=== PATIENT | female | born 1985 | race American Indian/Alaskan Native ===

== ENCOUNTER 2017-01-17 11:42 | Emergency (ER) | payer OTHER ==
[2017-01-17] MEDS ORDERED: Ketorolac 30 MG/ML SDV IVPUSH ONE (11:56)
[2017-01-17] MEDS ORDERED: Sodium Chloride 0.9% 1,000 ML IV ONE (11:56)
[2017-01-17] MEDS ORDERED: Ondansetron 4 MG/2 ML SDV IVPUSH ONE (11:56)
--- NOTE | 2017-01-17 11:58 | EDM.PDOC ---
ED HPI GENERAL MEDICAL PROBLEM - General Chief Complaint: Abdominal Pain Stated Complaint: LOWER ABDOMINAL PAIN Time Seen by Provider: 01/17/17 11:57 Source of Information: Reports: Patient - History of Present Illness INITIAL COMMENTS - FREE TEXT/NARRATIVE: HISTORY AND PHYSICAL: History of present illness: []Patient presents with left lower quadrant pain since Saturday she rates 4 out of 10 nonradiating, she has been constipated since Saturday but having a hard stool just prior to arrival with bowel movement slight increase in pain. Patient does not elicit any pain behaviors now and is in no distress LMP December 31, 2016 Patient currently having some vaginal bleeding, on workup for hCG was positive quantization at 200 hence ultrasound performed No fever nausea vomiting diarrhea chest pain shortness breath headache dizziness or palpitation no urine symptoms Patient currently menstruating Review of systems: As per history of present illness and below otherwise all systems reviewed and negative. Past medical history: As per history of present illness and as reviewed below otherwise noncontributory. Surgical history: As per history of present illness and as reviewed below otherwise noncontributory. Social history: No reported history of drug or alcohol abuse. Family history: As per history of present illness and as reviewed below otherwise noncontributory. Physical exam: HEENT: Atraumatic, normocephalic, pupils reactive, negative for conjunctival pallor or scleral icterus, mucous membranes moist, throat clear, neck supple, nontender, trachea midline. Lungs: Clear to auscultation, breath sounds equal bilaterally, chest nontender. Heart: S1S2, regular, negative for clicks, rubs, or JVD. Abdomen: Soft, nondistended, nontender on right upper and lower quadrant she is tender with deep palpation left lower quadrant no guarding or rebound. Negative for masses or hepatosplenomegaly. Negative for costovertebral tenderness. Pelvis: Stable nontender. Genitourinary: Deferred. Rectal: Deferred. Extremities: Atraumatic, negative for cords or calf pain. Neurovascular unremarkable. Neuro: Awake, alert, oriented. Cranial nerves II through XII unremarkable. Cerebellum unremarkable. Motor and sensory unremarkable throughout. Exam nonfocal. Diagnostics: []CBC, CMP, UA, amylase lipase Therapeutics: []1 L normal saline bolus Zofran 8 mg IV Toradol 30 mg IV Impression: Left adnexal pain Early intrauterine versus ectopic Threatened ABO type O positive I have discussed case with Dr. Cat and he will follow the patient on Saturday in his clinic he is requesting an hCG level the performed on Saturday I will give the patient a lab order and order to page me with results are forward results to me by Dr. Cat will be following the patient on Saturday further evaluation and treatment pending the visit to his clinic. Definitive disposition and diagnosis as appropriate pending reevaluation and review of above. left lower abdomen Pain Score (Numeric/FACES): 8 - Related Data Allergies Allergy/AdvReac Type Severity Reaction Status Date / Time Penicillins Allergy Hives Verified 01/17/17 11:49 Clear medical tape Allergy Other Uncoded 01/17/17 11:49 Green grapes Allergy Hives Uncoded 01/17/17 11:49 green grapes Allergy Hives Uncoded 01/17/17 11:49 Home Meds: Home Meds . 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 Other OB/BYN History: LMP 02/23/15 Other Musculoskeletal History: Some back pain low and upper, Hx; fractured Left Eye socket with CT scan review about 3-4 months ago - Infectious Disease History Infectious Disease History: Reports: Chicken Pox - Past Surgical History Other GI Surgeries/Procedures: Diagnostic Laparoscopy Other Female Surgeries/Procedures: ovarian cyct, 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 ED EXAM, GENERAL - Physical Exam Exam: See Below Course - Vital Signs Last Recorded V/S: Last Vital Signs Temp 36.7 C 01/17/17 11:48 Pulse 84 01/17/17 11:48 Resp 18 01/17/17 11:48 BP 157/92 H 01/17/17 11:48 Pulse Ox 98 01/17/17 11:48 - Orders/Labs/Meds Labs: Laboratory Tests 01/17/17 01/17/17 01/17/17 Range/Units 12:12 12:12 12:12 WBC 9.02 (4.0-11.0) K/uL RBC 4.78 (4.30-5.90) M/uL Hgb 12.1 (12.0-16.0) g/dL Hct 38.2 (36.0-46.0) % MCV 79.9 L (80.0-98.0) fL MCH 25.3 L (27.0-32.0) pg MCHC 31.7 (31.0-37.0) g/dL RDW Std Deviation 49.8 (28.0-62.0) fl RDW Coeff of Teresa 17 H (11.0-15.0) % Plt Count 311 (150-400) K/uL MPV 10.30 (7.40-12.00) fL Neut % (Auto) 63.8 (48.0-80.0) % Lymph % (Auto) 27.9 (16.0-40.0) % [place] % (Auto) 6.8 (0.0-15.0) % Eos % (Auto) 1.3 (0.0-7.0) % Baso % (Auto) 0.2 (0.0-1.5) % Neut # (Auto) 5.8 H (1.4-5.7) K/uL Lymph # (Auto) 2.5 H (0.6-2.4) K/uL [place] # (Auto) 0.6 (0.0-0.8) K/uL Eos # (Auto) 0.1 (0.0-0.7) K/uL Baso # (Auto) 0.0 (0.0-0.1) K/uL Nucleated RBC % 0.0 /100WBC Nucleated RBCs # 0 K/uL Sodium 138 (136-146) mmol/L Potassium 3.6 (3.5-5.1) mmol/L Chloride 106 (98-110) mmol/L Carbon Dioxide 23 (21-31) mmol/L BUN 6 (6.0-23.0) mg/dL Creatinine 0.7 (0.6-1.5) mg/dL Est Cr Clr Drug Dosing 112.20 mL/min Estimated GFR (MDRD) > 60.0 ml/min Glucose 116 H (60-110) mg/dL Calcium 9.3 (8.8-10.8) mg/dL Total Bilirubin 0.5 (0.1-1.5) mg/dL AST 16 (5-40) IU/L ALT 17 (8-54) IU/L Alkaline Phosphatase 92 (40-150) C-Reactive Protein 1.57 H (0.0-0.5) mg/dL Total Protein 7.5 (6.0-8.0) g/dL Albumin 4.0 (3.5-5.0) g/dL Globulin 3.5 (2.0-3.5) g/dL Albumin/Globulin Ratio 1.1 L (1.3-2.8) Amylase 44 (10-90) U/L Lipase 11 (7-80) U/L HCG, Quant mIU/mL Urine Color Urine Appearance Urine pH (5.0-8.0) Ur Specific [place] (1.001-1.035) Urine Protein (NEGATIVE) mg/dL Urine Glucose (UA) (NEGATIVE) mg/dL Urine Ketones (NEGATIVE) mg/dL Urine Occult Blood (NEGATIVE) Urine Nitrite (NEGATIVE) Urine Bilirubin (NEGATIVE) Urine Urobilinogen (<2.0) EU/dL Ur Leukocyte Esterase (NEGATIVE) Urine RBC (0-2/HPF) Urine WBC (0-5/HPF) Ur Epithelial Cells (NONE-FEW) Urine Bacteria (NEGATIVE) Urine HCG, Qual (NEGATIVE) Blood Type 01/17/17 01/17/17 01/17/17 Range/Units 12:12 12:12 12:49 WBC (4.0-11.0) K/uL RBC (4.30-5.90) M/uL Hgb (12.0-16.0) g/dL Hct (36.0-46.0) % MCV (80.0-98.0) fL MCH (27.0-32.0) pg MCHC (31.0-37.0) g/dL RDW Std Deviation (28.0-62.0) fl RDW Coeff of Teresa (11.0-15.0) % Plt Count (150-400) K/uL MPV (7.40-12.00) fL Neut % (Auto) (48.0-80.0) % Lymph % (Auto) (16.0-40.0) % [place] % (Auto) (0.0-15.0) % Eos % (Auto) (0.0-7.0) % Baso % (Auto) (0.0-1.5) % Neut # (Auto) (1.4-5.7) K/uL Lymph # (Auto) (0.6-2.4) K/uL [place] # (Auto) (0.0-0.8) K/uL Eos # (Auto) (0.0-0.7) K/uL Baso # (Auto) (0.0-0.1) K/uL Nucleated RBC % /100WBC Nucleated RBCs # K/uL Sodium (136-146) mmol/L Potassium (3.5-5.1) mmol/L Chloride (98-110) mmol/L Carbon Dioxide (21-31) mmol/L BUN (6.0-23.0) mg/dL Creatinine (0.6-1.5) mg/dL Est Cr Clr Drug Dosing mL/min Estimated GFR (MDRD) ml/min Glucose (60-110) mg/dL Calcium (8.8-10.8) mg/dL Total Bilirubin (0.1-1.5) mg/dL AST (5-40) IU/L ALT (8-54) IU/L Alkaline Phosphatase (40-150) C-Reactive Protein (0.0-0.5) mg/dL Total Protein (6.0-8.0) g/dL Albumin (3.5-5.0) g/dL Globulin (2.0-3.5) g/dL Albumin/Globulin Ratio (1.3-2.8) Amylase (10-90) U/L Lipase (7-80) U/L HCG, Quant 256.2 mIU/mL Urine Color Urine Appearance Urine pH (5.0-8.0) Ur Specific [place] (1.001-1.035) Urine Protein (NEGATIVE) mg/dL Urine Glucose (UA) (NEGATIVE) mg/dL Urine Ketones (NEGATIVE) mg/dL Urine Occult Blood (NEGATIVE) Urine Nitrite (NEGATIVE) Urine Bilirubin (NEGATIVE) Urine Urobilinogen (<2.0) EU/dL Ur Leukocyte Esterase (NEGATIVE) Urine RBC (0-2/HPF) Urine WBC (0-5/HPF) Ur Epithelial Cells (NONE-FEW) Urine Bacteria (NEGATIVE) Urine HCG, Qual POSITIVE (NEGATIVE) Blood Type O POSITIVE 01/17/17 Range/Units 12:49 WBC (4.0-11.0) K/uL RBC (4.30-5.90) M/uL Hgb (12.0-16.0) g/dL Hct (36.0-46.0) % MCV (80.0-98.0) fL MCH (27.0-32.0) pg MCHC (31.0-37.0) g/dL RDW Std Deviation (28.0-62.0) fl RDW Coeff of Teresa (11.0-15.0) % Plt Count (150-400) K/uL MPV (7.40-12.00) fL Neut % (Auto) (48.0-80.0) % Lymph % (Auto) (16.0-40.0) % [place] % (Auto) (0.0-15.0) % Eos % (Auto) (0.0-7.0) % Baso % (Auto) (0.0-1.5) % Neut # (Auto) (1.4-5.7) K/uL Lymph # (Auto) (0.6-2.4) K/uL [place] # (Auto) (0.0-0.8) K/uL Eos # (Auto) (0.0-0.7) K/uL Baso # (Auto) (0.0-0.1) K/uL Nucleated RBC % /100WBC Nucleated RBCs # K/uL Sodium (136-146) mmol/L Potassium (3.5-5.1) mmol/L Chloride (98-110) mmol/L Carbon Dioxide (21-31) mmol/L BUN (6.0-23.0) mg/dL Creatinine (0.6-1.5) mg/dL Est Cr Clr Drug Dosing mL/min Estimated GFR (MDRD) ml/min Glucose (60-110) mg/dL Calcium (8.8-10.8) mg/dL Total Bilirubin (0.1-1.5) mg/dL AST (5-40) IU/L ALT (8-54) IU/L Alkaline Phosphatase (40-150) C-Reactive Protein (0.0-0.5) mg/dL Total Protein (6.0-8.0) g/dL Albumin (3.5-5.0) g/dL Globulin (2.0-3.5) g/dL Albumin/Globulin Ratio (1.3-2.8) Amylase (10-90) U/L Lipase (7-80) U/L HCG, Quant mIU/mL Urine Color YELLOW Urine Appearance CLEAR Urine pH 6.0 (5.0-8.0) Ur Specific [place] <= 1.005 (1.001-1.035) Urine Protein NEGATIVE (NEGATIVE) mg/dL Urine Glucose (UA) NEGATIVE (NEGATIVE) mg/dL Urine Ketones NEGATIVE (NEGATIVE) mg/dL Urine Occult Blood LARGE H (NEGATIVE) Urine Nitrite NEGATIVE (NEGATIVE) Urine Bilirubin NEGATIVE (NEGATIVE) Urine Urobilinogen 0.2 (<2.0) EU/dL Ur Leukocyte Esterase NEGATIVE (NEGATIVE) Urine RBC 8-10 (0-2/HPF) Urine WBC 0-2 (0-5/HPF) Ur Epithelial Cells MODERATE (NONE-FEW) Urine Bacteria FEW (NEGATIVE) Urine HCG, Qual (NEGATIVE) Blood Type Meds: Medications Discontinued Medications Generic Name Dose Route Start Last Admin Trade Name Freq PRN Reason Stop Dose Admin Sodium Chloride 1,000 mls @ 999 mls/hr 01/17/17 11:56 01/17/17 12:15 Normal Saline IV 01/17/17 12:56 999 mls/hr STAT ONE Administration Ketorolac Tromethamine 30 mg 01/17/17 11:56 01/17/17 12:16 Toradol IVPUSH 01/17/17 11:57 30 mg ONETIME ONE Administration Ondansetron HCl 8 mg 01/17/17 11:56 01/17/17 12:15 Zofran IVPUSH 01/17/17 11:57 8 mg ONETIME ONE Administration Departure - Departure Time of Disposition: 15:15 Disposition: Home, Self-Care 01 Condition: Good Clinical Impression: Threatened - Discharge Information Forms: ED Department Discharge Additional Instructions: Return Saturday for lab testing, in order will be provided to have hCG quantitative lab drawn, he did not need to be seen in the emergency room at that time unless you are having increased pain or increased bleeding or any other symptoms of concern such as fever nausea vomiting chills sweats. Dr. Cat will be seeing you in his clinic on Saturday, he will need to contact his clinic and schedule the exact time of appointment for Saturday at the [facility] number for the clinic is provided below [facility] [address] [place] [id number] If you have any trouble in getting your appointment scheduled is imperative that she be seen on Saturday and with any difficulty contact me through the emergency room and I will assist with appointment arrangement further. A lab order will be placed for Saturday, as well as emergency room referral to Dr. Leyva' clinic will be provided and I do not anticipate any difficulty in scheduling the appointment. The following information is given to patients seen in the emergency department who are being discharged to home. This information is to outline your options for follow-up care. We provide all patients seen in our emergency department with a follow-up referral. The need for follow-up, as well as the timing and circumstances, are variable depending upon the specifics of your emergency department visit. If you don't have a primary care physician on staff, we will provide you with a referral. We always advise you to contact your personal physician following an emergency department visit to inform them of the circumstance of the visit and for follow-up with them and/or the need for any referrals to a consulting specialist. The emergency department will also refer you to a specialist when appropriate. This referral assures that you have the opportunity for follow-up care with a specialist. All of these measure are taken in an effort to provide you with optimal care, which includes your follow-up. Under all circumstances we always encourage you to contact your private physician who remains a resource for coordinating your care. When calling for follow-up care, please make the office aware that this follow-up is from your recent emergency room visit. If for any reason you are refused follow-up, please contact the [facility] emergency department at and asked to speak to the emergency department charge nurse. .
[2017-01-17 12:44] LABS: CHLORIDE,CL 106 mmol/L (98-110); SODIUM,NA 138 mmol/L (136-146)
--- NOTE | 2017-01-17 14:48 | US ---
Pelvic transvaginal sonogram Multiple longitudinal and transverse sections obtained with real-time ultrasound demonstrate that th e endometrium of the uterus is thickened measuring 0.96 cm without evidence of an intrauterine gesta tional sac at this time. Right ovary is normal. Left ovary is contiguous with a septated cystic mass medial to and contiguous with the ovary measuring 3.3 x 2.9 cm. There is a tiny amount of pelvic pe ritoneal fluid behind the uterus. Impression: Early intrauterine gestation versus ectopic gestation not excluded. The cystic mass coul d represent a corpus luteum cyst which has bled slightly. Serum hCG determinations to document appro priate doubling time is recommended along with follow-up ultrasonography in an appropriate clinical interval.
[2017-01-17 15:35] VITALS: BP 132/76
== END 2017-01-17 15:35 | disposition home or self-care (01) ==
LOC: MW.ED 11:42
DX: O20.0 Threatened abortion (principal); F17.210 Nicotine dependence, cigarettes, uncomplicated; Z88.0 Allergy status to penicillin; Z91.048 Other nonmedicinal substance allergy status
CPT/HCPCS: 36415; 76815; 80053; 81001; 81025; 82150; 83690; 84702; 85025; 86140; 86900; 86901; 96361; 96374; 96375; 99284; J1885; J2405; J7040; 99283

== ENCOUNTER 2017-06-19 08:24 | Emergency (ER) | payer OTHER ==
--- NOTE | 2017-06-19 08:52 | EDM.PDOC ---
ED HPI GENERAL MEDICAL PROBLEM - General Chief Complaint: Respiratory Problem Stated Complaint: FLU-LIKE SYMPTOMS Time Seen by Provider: 06/19/17 08:36 Source of Information: Reports: Patient History Limitations: Reports: No Limitations - History of Present Illness INITIAL COMMENTS - FREE TEXT/NARRATIVE: History of present illness: []Patient's had cold symptoms for 4 days with sinus congestion cough, 2 episodes of vomiting and 2 episodes of diarrhea since yesterday. She feels that her fever just broke as she now has sweats. Review of systems: As per history of present illness and below otherwise all systems reviewed and negative. Past medical history: As per history of present illness and as reviewed below otherwise noncontributory. Surgical history: As per history of present illness and as reviewed below otherwise noncontributory. Social history: No reported history of drug or alcohol abuse. Family history: As per history of present illness and as reviewed below otherwise noncontributory. Physical exam: General: Well developed, well nourished in NAD HEENT: Atraumatic, normocephalic, pupils reactive, negative for conjunctival pallor or scleral icterus, mucous membranes moist, throat clear, neck supple, nontender, trachea midline. TMs clear adenopathy Lungs: Clear to auscultation, breath sounds equal bilaterally, chest nontender. Mild expiratory wheezing on the left lower accessory muscle use or rhonchi noted. Heart: S1S2, regular, negative for clicks, rubs, or JVD. Abdomen: Soft, nondistended, nontender. Negative for masses or hepatosplenomegaly. Negative for costovertebral tenderness. Pelvis: Stable nontender. Genitourinary: Deferred. Rectal: Deferred. Extremities: Atraumatic, negative for cords or calf pain. Neurovascular unremarkable. Neuro: Awake, alert, oriented. Cranial nerves II through XII unremarkable. Cerebellum unremarkable. Motor and sensory unremarkable throughout. Exam nonfocal. Diagnostics: [] Therapeutics: [] Impression: []Viral syndrome Plan: []Albuterol, Zofran for nausea increase fluids follow-up with PMD as needed increase fluids as tolerated. Definitive disposition and diagnosis as appropriate pending reevaluation and review of above. Bodyaches Pain Score (Numeric/FACES): 5 - Related Data Allergies Allergy/AdvReac Type Severity Reaction Status Date / Time Penicillins Allergy Hives Verified 01/17/17 11:49 Clear medical tape Allergy Other Uncoded 01/17/17 11:49 Green grapes Allergy Hives Uncoded 06/19/17 08:40 Home Meds: Home Meds Albuterol Sulfate [Ventolin Hfa] 8 gm IH Q4HR PRN #1 [email or web address] 06/19/17 [Rx] Ondansetron HCl [Zofran] 4 mg PO Q6HR PRN #16 tablet 06/19/17 [Rx] Past Medical History - Past Health History Medical/Surgical History: Denies Medical/Surgical History Other Respiratory History: Reports > 10 yr history of smoking, current use 1 pack/day Gastrointestinal History: Reports: Other (See Below) Other Gastrointestinal History: Indigestion, Right Upper Quadrant Pain, gallbladder problems 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 Other OB/BYN History: LMP 02/23/15 Other Musculoskeletal History: Some back pain low and upper, Hx; fractured Left Eye socket with CT scan review about 3-4 months ago - Infectious Disease History Infectious Disease History: Reports: Chicken Pox - Past Surgical History Other GI Surgeries/Procedures: Diagnostic Laparoscopy Other Female Surgeries/Procedures: ovarian cyct, 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 Social & Family History - Family History Family Medical History: Noncontributory - Tobacco Use Smoking Status *Q: Current Every Day Smoker Years of Tobacco use: 12 Packs/Tins Daily: 1 - Caffeine Use Caffeine Use: Reports: None - Alcohol Use Days Per Week of Alcohol Use: 0 - Recreational Drug Use Recreational Drug Use: No Drug Use in Last 12 Months: No ED ROS GENERAL - Review of Systems Review Of Systems: See Below (See history of present illness) ED EXAM, GENERAL - Physical Exam Exam: See Below (See history of present illness) Course - Vital Signs Last Recorded V/S: Last Vital Signs Temp 98.6 F 06/19/17 08:43 Pulse 103 H 06/19/17 08:43 Resp 18 06/19/17 08:43 BP 143/89 H 06/19/17 08:43 Pulse Ox 97 06/19/17 08:43 - Orders/Labs/Meds Orders: Active Orders 24 hr Category Date Time Status INFLUENZA A+B AG SCREEN [RM] Stat Lab 06/19/17 08:40 Ordered Departure - Departure Time of Disposition: 08:49 Disposition: Home, Self-Care 01 Condition: Good Clinical Impression: Viral syndrome - Discharge Information Prescriptions: Albuterol Sulfate [Ventolin Hfa] 8 gm IH Q4HR PRN #1 [email or web address] PRN Reason: Shortness Of Breath Ondansetron HCl [Zofran] 4 mg PO Q6HR PRN #16 tablet PRN Reason: Nausea Referrals: Shiva Tse MD [Resident] - (Follow-up as needed) Additional Instructions: The following information is given to patients seen in the emergency department who are being discharged to home. This information is to outline your options for follow-up care. We provide all patients seen in our emergency department with a follow-up referral. The need for follow-up, as well as the timing and circumstances, are variable depending upon the specifics of your emergency department visit. If you don't have a primary care physician on staff, we will provide you with a referral. We always advise you to contact your personal physician following an emergency department visit to inform them of the circumstance of the visit and for follow-up with them and/or the need for any referrals to a consulting specialist. The emergency department will also refer you to a specialist when appropriate. This referral assures that you have the opportunity for follow-up care with a specialist. All of these measure are taken in an effort to provide you with optimal care, which includes your follow-up. Under all circumstances we always encourage you to contact your private physician who remains a resource for coordinating your care. When calling for follow-up care, please make the office aware that this follow-up is from your recent emergency room visit. If for any reason you are refused follow-up, please contact the [facility] Emergency Department at and asked to speak to the emergency department charge nurse. Zofran and albuterol as directed, Tylenol, Motrin [id number] meds for symptomatic relief. Increase fluids as tolerated follow-up [facility] as needed [facility] [address] [place] [id number] - My Orders Last 24 Hours: My Active Orders 06/19/17 08:40 INFLUENZA A+B AG SCREEN [RM] Stat - Assessment/Plan Last 24 Hours: My Active Orders 06/19/17 08:40 INFLUENZA A+B AG SCREEN [RM] Stat
[2017-06-19 09:08] VITALS: BP 136/78
== END 2017-06-19 09:09 | disposition home or self-care (01) ==
LOC: MW.ED 08:24
DX: B34.9 Viral infection, unspecified (principal); F17.210 Nicotine dependence, cigarettes, uncomplicated; Z88.0 Allergy status to penicillin
CPT/HCPCS: 99282; 99283

== ENCOUNTER 2017-09-27 00:34 | Emergency (ER) | payer OTHER ==
--- NOTE | 2017-09-27 00:44 | EDM.PDOC ---
ED HPI GENERAL MEDICAL PROBLEM - General Stated Complaint: BACK PAIN Time Seen by Provider: 09/27/17 00:39 - History of Present Illness INITIAL COMMENTS - FREE TEXT/NARRATIVE: HISTORY AND PHYSICAL: History of present illness: Patient 31-year-old female with history sciatica presents with concern of right lower back pain. She denies numbness weakness incontinence or retention of bowel or bladder denies trauma or other concern Review of systems: As per history of present illness and below otherwise all systems reviewed and negative. Past medical history: As per history of present illness and as reviewed below otherwise noncontributory. Surgical history: As per history of present illness and as reviewed below otherwise noncontributory. Social history: No reported history of drug or alcohol abuse. Family history: As per history of present illness and as reviewed below otherwise noncontributory. Physical exam: HEENT: Atraumatic, normocephalic, pupils reactive, negative for conjunctival pallor or scleral icterus, mucous membranes moist, throat clear, neck supple, nontender, trachea midline. Lungs: Clear to auscultation, breath sounds equal bilaterally, chest nontender. Heart: S1S2, regular, negative for clicks, rubs, or JVD. Abdomen: Soft, nondistended, nontender. Negative for masses or hepatosplenomegaly. Negative for costovertebral tenderness. Pelvis: Stable nontender. Genitourinary: Deferred. Rectal: Deferred. Extremities: Atraumatic, negative for cords or calf pain. Neurovascular unremarkable. Neuro: Awake, alert, oriented. Cranial nerves II through XII unremarkable. Cerebellum unremarkable. Motor and sensory unremarkable throughout. Exam nonfocal. Back: Patient is some tenderness over right sciatic notch is no vertebral body or point tenderness she is able stand on her toes back on her heels motor and sensory are normal Diagnostics: None Therapeutics: Toradol 60 mg IM Impression: #1 right-sided back pain history of sciatica Definitive disposition and diagnosis as appropriate pending reevaluation and review of above. - Related Data Allergies Allergy/AdvReac Type Severity Reaction Status Date / Time Penicillins Allergy Hives Verified 01/17/17 11:49 Clear medical tape Allergy Other Uncoded 01/17/17 11:49 Green grapes Allergy Hives Uncoded 06/19/17 08:40 Home Meds: Home Meds Albuterol Sulfate [Ventolin Hfa] 8 gm IH Q4HR PRN #1 [email or web address] 06/19/17 [Rx] Ondansetron HCl [Zofran] 4 mg PO Q6HR PRN #16 tablet 06/19/17 [Rx] Past Medical History - Past Health History Medical/Surgical History: Denies Medical/Surgical History Other Respiratory History: Reports > 10 yr history of smoking, current use 1 pack/day Gastrointestinal History: Reports: Other (See Below) Other Gastrointestinal History: Indigestion, Right Upper Quadrant Pain, gallbladder problems 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: Reports: 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 Other OB/BYN History: LMP 02/23/15 Other Musculoskeletal History: Some back pain low and upper, Hx; fractured Left Eye socket with CT scan review about 3-4 months ago - Infectious Disease History Infectious Disease History: Reports: Chicken Pox - Past Surgical History Other GI Surgeries/Procedures: Diagnostic Laparoscopy Other Female Surgeries/Procedures: ovarian cyct, 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 ED EXAM, GENERAL - Physical Exam Exam: See Below Departure - Departure Time of Disposition: 00:42 Disposition: Home, Self-Care 01 Condition: Good Clinical Impression: Low back pain, Sciatica - Discharge Information Additional Instructions: The following information is given to patients seen in the emergency department who are being discharged to home. This information is to outline your options for follow-up care. We provide all patients seen in our emergency department with a follow-up referral. The need for follow-up, as well as the timing and circumstances, are variable depending upon the specifics of your emergency department visit. If you don't have a primary care physician on staff, we will provide you with a referral. We always advise you to contact your personal physician following an emergency department visit to inform them of the circumstance of the visit and for follow-up with them and/or the need for any referrals to a consulting specialist. The emergency department will also refer you to a specialist when appropriate. This referral assures that you have the opportunity for followup care with a specialist. All of these measure are taken in an effort to provide you with optimal care, which includes your followup. Under all circumstances we always encourage you to contact your private physician who remains a resource for coordinating your care. When calling for followup care, please make the office aware that this follow-up is from your recent emergency room visit. If for any reason you are refused follow-up, please contact the [facility] emergency department at and asked to speak to the emergency department charge nurse. Ultram/Medrol as prescribed follow-up private medical doctor call to schedule appointment return as needed as discussed
[2017-09-27] MEDS ORDERED: Ketorolac 60 MG/2 ML SDV IM ONE (00:45)
[2017-09-27 01:19] VITALS: BP 147/75
== END 2017-09-27 01:10 | disposition home or self-care (01) ==
LOC: MW.ED 00:34
DX: M54.41 Lumbago with sciatica, right side (principal); F17.210 Nicotine dependence, cigarettes, uncomplicated; Z88.0 Allergy status to penicillin; Z91.018 Allergy to other foods
CPT/HCPCS: 96372; 99283; J1885

== ENCOUNTER 2018-01-26 19:40 | Emergency (ER) | payer OTHER ==
[2018-01-26] MEDS ORDERED: Ketorolac 60 MG/2 ML SDV IM ONE (20:08)
--- NOTE | 2018-01-26 20:15 | EDM.PDOC ---
ED HPI GENERAL MEDICAL PROBLEM - General Chief Complaint: Back Pain or Injury Stated Complaint: LOWER BACK IS HURTING Time Seen by Provider: 01/26/18 20:05 - History of Present Illness INITIAL COMMENTS - FREE TEXT/NARRATIVE: HISTORY AND PHYSICAL: History of present illness: Patient's a 32-year-old white female history chronic back pain presents a concern of low back pain there's been no numbness weakness incontinence or retention bowel or bladder and no other complaints she has received Toradol in the past with good improvement. Patient took muscle relaxants and narcotic analgesic from prior prescription prior to arrival Review of systems: As per history of present illness and below otherwise all systems reviewed and negative. Past medical history: As per history of present illness and as reviewed below otherwise noncontributory. Surgical history: As per history of present illness and as reviewed below otherwise noncontributory. Social history: No reported history of drug or alcohol abuse. Family history: As per history of present illness and as reviewed below otherwise noncontributory. Physical exam: HEENT: Atraumatic, normocephalic, pupils reactive, negative for conjunctival pallor or scleral icterus, mucous membranes moist, throat clear, neck supple, nontender, trachea midline. Lungs: Clear to auscultation, breath sounds equal bilaterally, chest nontender. Heart: S1S2, regular, negative for clicks, rubs, or JVD. Abdomen: Soft, nondistended, nontender. Negative for masses or hepatosplenomegaly. Negative for costovertebral tenderness. Pelvis: Stable nontender. Genitourinary: Deferred. Rectal: Deferred. Extremities: Atraumatic, negative for cords or calf pain. Neurovascular unremarkable. Neuro: Awake, alert, oriented. Cranial nerves II through XII unremarkable. Cerebellum unremarkable. Motor and sensory unremarkable throughout. Exam nonfocal. Back: Patient is some mild paravertebral tenderness at the level lumbar spinal vertebral body or point tenderness patient is able CNR toes back on her heels motor and sensory are normal Diagnostics: Deferred Therapeutics: Toradol 60 mg IM Impression: #1 chronic back pain Definitive disposition and diagnosis as appropriate pending reevaluation and review of above. low back Pain Score (Numeric/FACES): 10 - Related Data Allergies Allergy/AdvReac Type Severity Reaction Status Date / Time Penicillins Allergy Hives Verified 01/26/18 19:54 Clear medical tape Allergy Other Uncoded 01/26/18 19:54 Green grapes Allergy Hives Uncoded 01/26/18 19:54 Home Meds: Home Meds Cyclobenzaprine [Flexeril] 10 mg PO DAILY PRN 01/26/18 [History] Hydrocodone/Acetaminophen [Hydrocodon-Acetaminoph 7.5-325] 1 each PO ASDIRECTED PRN 01/26/18 [History] Past Medical History - Past Health History Medical/Surgical History: Denies Medical/Surgical History HEENT History: Reports: None Cardiovascular History: Reports: None Other Respiratory History: Reports > 10 yr history of smoking, current use 1 pack/day Gastrointestinal History: Reports: Other (See Below) Other Gastrointestinal History: Indigestion, Right Upper Quadrant Pain, gallbladder problems Genitourinary History: Reports: None 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 CONTRACTOR 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 History: LMP 02/23/15 Musculoskeletal History: Reports: Back Pain, Chronic Other Musculoskeletal History: Some back pain low and upper, Hx; fractured Left Eye socket with CT scan review about 3-4 months ago Neurological History: Reports: None Psychiatric History: Reports: None Endocrine/Metabolic History: Reports: None Hematologic History: Reports: None Immunologic History: Reports: None Oncologic (Cancer) History: Reports: None Dermatologic History: Reports: None - Infectious Disease History Infectious Disease History: Reports: Chicken Pox - Past Surgical History Head Surgeries/Procedures: Reports: None Other GI Surgeries/Procedures: Diagnostic Laparoscopy Other Female Surgeries/Procedures: ovarian cyct, 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 ED EXAM, GENERAL - Physical Exam Exam: See Below (See dictation) Course - Vital Signs Last Recorded V/S: Last Vital Signs Temp 36.0 C 01/26/18 19:52 Pulse 90 01/26/18 19:52 Resp 16 01/26/18 19:52 BP 126/82 01/26/18 19:52 Pulse Ox 97 01/26/18 19:52 - Orders/Labs/Meds Meds: Medications Discontinued Medications Generic Name Dose Route Start Last Admin Trade Name Yaneth PRN Reason Stop Dose Admin Ketorolac Tromethamine 60 mg 01/26/18 20:08 Toradol IM 01/26/18 20:09 ONETIME ONE Departure - Departure Time of Disposition: 20:14 Disposition: Home, Self-Care 01 Condition: Good Clinical Impression: Chronic back pain - Discharge Information *PRESCRIPTION DRUG MONITORING PROGRAM REVIEWED*: Not Applicable *COPY OF PRESCRIPTION DRUG MONITORING REPORT IN PATIENT DREA: Not Applicable Referrals: PCP,None [Primary Care Provider] - Additional Instructions: The following information is given to patients seen in the emergency department who are being discharged to home. This information is to outline your options for follow-up care. We provide all patients seen in our emergency department with a follow-up referral. The need for follow-up, as well as the timing and circumstances, are variable depending upon the specifics of your emergency department visit. If you don't have a primary care physician on staff, we will provide you with a referral. We always advise you to contact your personal physician following an emergency department visit to inform them of the circumstance of the visit and for follow-up with them and/or the need for any referrals to a consulting specialist. The emergency department will also refer you to a specialist when appropriate. This referral assures that you have the opportunity for followup care with a specialist. All of these measure are taken in an effort to provide you with optimal care, which includes your followup. Under all circumstances we always encourage you to contact your private physician who remains a resource for coordinating your care. When calling for followup care, please make the office aware that this follow-up is from your recent emergency room visit. If for any reason you are refused follow-up, please contact the [facility] emergency department at and asked to speak to the emergency department charge nurse. Continue current medications Medrol as prescribed follow-up private medical doctor as discussed reevaluation and further diagnostic and therapy as indicated
[2018-01-26 20:34] VITALS: BP 113/88
== END 2018-01-26 20:39 | disposition home or self-care (01) ==
LOC: MW.ED 19:40
DX: G89.29 Other chronic pain (principal); M54.5 Low back pain; F17.210 Nicotine dependence, cigarettes, uncomplicated; Z88.0 Allergy status to penicillin; Z88.8 Allergy status to other drugs, medicaments and biological substances; Z79.899 Other long term (current) drug therapy
CPT/HCPCS: 96372; 99283; J1885

== ENCOUNTER 2018-11-28 19:30 | Emergency (ER) | payer OTHER ==
--- NOTE | 2018-11-28 19:39 | EDM.PDOC ---
ED HPI GENERAL MEDICAL PROBLEM - General Stated Complaint: SWOLLEN FACE AND HEADACHE Time Seen by Provider: 11/28/18 19:36 - History of Present Illness INITIAL COMMENTS - FREE TEXT/NARRATIVE: HISTORY AND PHYSICAL: History of present illness: Patient's a 32-year-old white female history of chronic intermittent headache present concern of headache 2 days has been no trauma no nausea no vomiting patient reports of nursing that she feels like she had left-sided numbness and weakness this morning. This is vaguely described in is not illustrated by a associated behavior or limitation that qualifies is better. Review of systems: As per history of present illness and below otherwise all systems reviewed and negative. Past medical history: As per history of present illness and as reviewed below otherwise noncontributory. Surgical history: As per history of present illness and as reviewed below otherwise noncontributory. Social history: No reported history of drug or alcohol abuse. Family history: As per history of present illness and as reviewed below otherwise noncontributory. Physical exam: HEENT: Atraumatic, normocephalic, pupils reactive, negative for conjunctival pallor or scleral icterus, mucous membranes moist, throat clear, neck supple, nontender, trachea midline. Lungs: Clear to auscultation, breath sounds equal bilaterally, chest nontender. Heart: S1S2, regular, negative for clicks, rubs, or JVD. Abdomen: Soft, nondistended, nontender. Negative for masses or hepatosplenomegaly. Negative for costovertebral tenderness. Pelvis: Stable nontender. Genitourinary: Deferred. Rectal: Deferred. Extremities: Atraumatic, negative for cords or calf pain. Neurovascular unremarkable. Neuro: Awake, alert, oriented. Cranial nerves II through XII unremarkable. Cerebellum unremarkable. Motor and sensory unremarkable throughout. Exam nonfocal. Diagnostics: CBC CMP troponin PT/INR chest x-ray EKG CT brain Therapeutics: Saline lock Impression: #1 cephalgia disposition and diagnosis as appropriate pending reevaluation and review of above. - Related Data Allergies Allergy/AdvReac Type Severity Reaction Status Date / Time Penicillins Allergy Hives Verified 11/28/18 19:44 Clear medical tape Allergy Other Uncoded 11/28/18 19:44 Green grapes Allergy Hives Uncoded 11/28/18 19:44 Home Meds: Home Meds . 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 OFFICE CLERK History: LMP 02/23/15 Musculoskeletal History: Reports: Back Pain, Chronic Other Musculoskeletal History: Some back pain low and upper, Hx; fractured Left Eye socket with CT scan review about 3-4 months ago Neurological History: Reports: None Psychiatric History: Reports: None Endocrine/Metabolic History: Reports: None Hematologic History: Reports: None Immunologic History: Reports: None Oncologic (Cancer) History: Reports: None Dermatologic History: Reports: None - Infectious Disease History Infectious Disease History: Reports: Chicken Pox - Past Surgical History Head Surgeries/Procedures: Reports: None Other GI Surgeries/Procedures: Diagnostic Laparoscopy Other Female Surgeries/Procedures: ovarian cyct, 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 ED EXAM, GENERAL - Physical Exam Exam: See Below (See dictation) Course - Vital Signs Last Recorded V/S: Last Vital Signs Temp 37.0 C 11/28/18 19:45 Pulse 91 11/28/18 19:45 Resp 16 11/28/18 19:45 BP 141/91 H 11/28/18 19:45 Pulse Ox 97 11/28/18 19:45 - Orders/Labs/Meds Orders: Active Orders 24 hr Category Date Time Status EKG 12 Lead [EKG Documentation Completion] [RC] STAT Care 11/28/18 20:50 Active Chest 1V Frontal [CR] Stat Exams 11/28/18 20:50 Ordered COMPREHENSIVE METABOLIC PN,CMP [CHEM] Stat Lab 11/28/18 19:40 Received TROPONIN I [CHEM] Stat Lab 11/28/18 19:40 Received Labs: Laboratory Tests 11/28/18 11/28/18 Range/Units 19:40 19:40 WBC 11.54 H (4.0-11.0) K/uL RBC 4.76 (4.30-5.90) M/uL Hgb 13.8 (12.0-16.0) g/dL Hct 41.8 (36.0-46.0) % MCV 87.8 (80.0-98.0) fL MCH 29.0 (27.0-32.0) pg MCHC 33.0 (31.0-37.0) g/dL RDW Std Deviation 44.6 (28.0-62.0) fl RDW Coeff of Teresa 14 (11.0-15.0) % Plt Count 312 (150-400) K/uL MPV 10.20 (7.40-12.00) fL Neut % (Auto) 61.3 (48.0-80.0) % Lymph % (Auto) 29.4 (16.0-40.0) % Hunt % (Auto) 8.1 (0.0-15.0) % Eos % (Auto) 1.0 (0.0-7.0) % Baso % (Auto) 0.2 (0.0-1.5) % Neut # (Auto) 7.1 H (1.4-5.7) K/uL Lymph # (Auto) 3.4 H (0.6-2.4) K/uL Hunt # (Auto) 0.9 H (0.0-0.8) K/uL Eos # (Auto) 0.1 (0.0-0.7) K/uL Baso # (Auto) 0.0 (0.0-0.1) K/uL Nucleated RBC % 0.0 /100WBC Nucleated RBCs # 0 K/uL INR 0.93 Meds: Medications Discontinued Medications Generic Name Dose Route Start Last Admin Trade Name Freq PRN Reason Stop Dose Admin Ketorolac Tromethamine 30 mg 11/28/18 20:50 11/28/18 21:01 Toradol IVPUSH 11/28/18 20:51 30 mg ONETIME ONE Administration Departure - Departure Time of Disposition: 21:08 Disposition: Home, Self-Care 01 Condition: Good Clinical Impression: Cephalgia, Encounter for medical screening examination - Discharge Information Referrals: PCP,None [Primary Care Provider] - Additional Instructions: The following information is given to patients seen in the emergency department who are being discharged to home. This information is to outline your options for follow-up care. We provide all patients seen in our emergency department with a follow-up referral. The need for follow-up, as well as the timing and circumstances, are variable depending upon the specifics of your emergency department visit. If you don't have a primary care physician on staff, we will provide you with a referral. We always advise you to contact your personal physician following an emergency department visit to inform them of the circumstance of the visit and for follow-up with them and/or the need for any referrals to a consulting specialist. The emergency department will also refer you to a specialist when appropriate. This referral assures that you have the opportunity for followup care with a specialist. All of these measure are taken in an effort to provide you with optimal care, which includes your followup. Under all circumstances we always encourage you to contact your private physician who remains a resource for coordinating your care. When calling for followup care, please make the office aware that this follow-up is from your recent emergency room visit. If for any reason you are refused follow-up, please contact the [facility] emergency department at and asked to speak to the emergency department charge nurse. Follow-up primary care as discussed return as needed as discussed - My Orders Last 24 Hours: My Active Orders 11/28/18 19:40 COMPREHENSIVE METABOLIC PN,CMP [CHEM] Stat TROPONIN I [CHEM] Stat 11/28/18 20:50 EKG 12 Lead [EKG Documentation Completion] [RC] STAT Chest 1V Frontal [CR] Stat - Assessment/Plan Last 24 Hours: My Active Orders 11/28/18 19:40 COMPREHENSIVE METABOLIC PN,CMP [CHEM] Stat TROPONIN I [CHEM] Stat 11/28/18 20:50 EKG 12 Lead [EKG Documentation Completion] [RC] STAT Chest 1V Frontal [CR] Stat
--- NOTE | 2018-11-28 20:20 | CT ---
INDICATION: stroke code CT HEAD WITHOUT CONTRAST TECHNIQUE: Multiple axial CT images were performed through the head without intravenous contrast administration. COMPARISON: No previous studies are currently available for comparison. FINDINGS: No acute intracranial hemorrhage is identified. No extra-axial collections are evident and there is no mass effect or midline shift. Ventricles are normal in size and configuration. Brain parenchyma appears normal with unremarkable mckeon-white differentiation. Osseous structures are within normal limits and no fractures are seen. Included portions of the paranasal sinuses and mastoid air cells are normally aerated. IMPRESSION: Normal non-contrast head CT. Report called to Dr. Munoz at 8:16pm 11/28/2018. GIL BECERRA MD [employer] Dictated by: Jose Manuel Becerra MD @ 11/28/2018 20:18:45 (Electronically Signed)
[2018-11-28] MEDS ORDERED: Ketorolac 30 MG/ML SDV IVPUSH ONE (20:50)
[2018-11-28 21:08] LABS: CHLORIDE,CL 103 mmol/L (98-107); SODIUM,NA 133 mmol/L (136-145)
[2018-11-28 22:13] VITALS: BP 109/56
--- NOTE | 2018-11-28 22:30 | CR ---
INDICATION: Cerebral vascular accident. TECHNIQUE: Chest 1 view. COMPARISON: 21 April 2016 one view chest FINDINGS: Cardiovascular and mediastinum: Heart size and vasculature are normal in caliber and appearance. Mediastinum is within normal limits. Lungs and pleural space: Lungs are clear. No sign of infiltrate or mass. No sign of pleural effusion. No pneumothorax. Bones and soft tissues: No significant findings. IMPRESSION: Unremarkable chest. Dictated by Warren Gates MD @ Nov 28 2018 10:29PM Signed by Dr. Warren Gates @ Nov 28 2018 10:29PM
== END 2018-11-28 21:43 | disposition home or self-care (01) ==
LOC: MW.ED 19:30
DX: R51 Headache (principal); Z88.0 Allergy status to penicillin
CPT/HCPCS: 36415; 70450; 71045; 80053; 84484; 85025; 85610; 93005; 96374; 99284; J1885

== ENCOUNTER 2019-08-07 15:14 | Emergency (ER) | payer OTHER ==
--- NOTE | 2019-08-07 16:59 | EDM.PDOC ---
ED HPI GENERAL MEDICAL PROBLEM - General Chief Complaint: Cardiovascular Problem Stated Complaint: CHEST PAIN Time Seen by Provider: 08/07/19 16:22 Source of Information: Reports: Patient History Limitations: Reports: No Limitations - History of Present Illness INITIAL COMMENTS - FREE TEXT/NARRATIVE: This 33 year old female is admitted to the ED with a chief complaint of pressure in the center of her chest with associated heaviness. She also complains of palpations with her chest pressure. She denies any nausea or vomiting. She states that her symptoms started about 45 minutes prior to arrival to the ED. The patient complains of pain in her left breast which she states is different from her chest pain. She describes the pain as an aching sensation. She states that she has yellow drainage coming from her left nipple. She states that she has never had a mammogram in that that service is not offered through [facility]. Onset: Sudden Severity: Mild (mild chest discomfort at this time.) - Related Data Allergies Allergy/AdvReac Type Severity Reaction Status Date / Time Penicillins Allergy Hives Verified 08/07/19 15:24 Clear medical tape Allergy Other Uncoded 08/07/19 15:24 Green grapes Allergy Hives Uncoded 08/07/19 15:24 Home Meds: Home Meds Ibuprofen [Motrin] 800 mg PO BIDMEALS PRN 10 Days #20 tablet 08/07/19 [Rx] Past Medical History - Past Health History Medical/Surgical History: Denies Medical/Surgical History HEENT History: Reports: None Cardiovascular History: Reports: None Other Respiratory History: Reports > 10 yr history of smoking, current use 1 pack/day Gastrointestinal History: Reports: Other (See Below) Other Gastrointestinal History: Indigestion, Right Upper Quadrant Pain, gallbladder problems Genitourinary History: Reports: None 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: Reports: 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 Other 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: LMP 02/23/15 Musculoskeletal History: Reports: Back Pain, Chronic Other Musculoskeletal History: Some back pain low and upper, Hx; fractured Left Eye socket with CT scan review about 3-4 months ago Neurological History: Reports: None Psychiatric History: Reports: None Endocrine/Metabolic History: Reports: None Hematologic History: Reports: None Immunologic History: Reports: None Oncologic (Cancer) History: Reports: None Dermatologic History: Reports: None - Infectious Disease History Infectious Disease History: Reports: Chicken Pox - Past Surgical History Head Surgeries/Procedures: Reports: None Other GI Surgeries/Procedures: Diagnostic Laparoscopy Other Female Surgeries/Procedures: ovarian cyct, 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 Social & Family History - Family History Family Medical History: Noncontributory - Tobacco Use Smoking Status *Q: Current Every Day Smoker Years of Tobacco use: 10 Packs/Tins Daily: 1 - Caffeine Use Caffeine Use: Reports: Soda - Recreational Drug Use Recreational Drug Use: No ED ROS GENERAL - Review of Systems Review Of Systems: See Below Constitutional: Reports: No Symptoms HEENT: Reports: No Symptoms Respiratory: Reports: Shortness of Breath (very mild SOB) Cardiovascular: Reports: Chest Pain, Palpitations (that comes and goes.) Endocrine: Reports: No Symptoms GI/Abdominal: Reports: No Symptoms : Reports: No Symptoms Musculoskeletal: Reports: No Symptoms Skin: Reports: No Symptoms Neurological: Reports: No Symptoms ED EXAM, GENERAL - Physical Exam Exam: See Below Exam Limited By: No Limitations General Appearance: Alert, WD/WN, No Apparent Distress Eye Exam: Bilateral Eye: Normal Inspection, PERRL Nose: Normal Inspection, Normal Mucosa, No Blood Throat/Mouth: Normal Inspection, Normal Lips, Normal Teeth, Normal Gums, Normal Oropharynx, Normal Voice, No Airway Compromise Head: Atraumatic, Normocephalic Neck: Normal Inspection, Supple, Non-Tender, Full Range of Motion Respiratory/Chest: No Respiratory Distress, Lungs Clear, Normal Breath Sounds, No Accessory Muscle Use, Chest Non-Tender, Other (Breast exam of the left breast is negative for signs of mastitis. Very little global tenderness is noted of the left breast. No nipple discharge. Both breast are nodular.) Cardiovascular: Normal Peripheral Pulses, Regular Rate, Rhythm, No Edema, No Gallop, No JVD, No Murmur, No Rub Peripheral Pulses: 2+: Dorsalis Pedis (R), 3+: Carotid (L), Carotid (R), Radial (L), Radial (R), Dorsalis Pedis (L) GI/Abdominal: Normal Bowel Sounds, Soft, Non-Tender, No Organomegaly, No Distention, No Abnormal Bruit, No Mass, Other (morbid obesity) (Female) Exam: Deferred Rectal (Female) Exam: Deferred Back Exam: Normal Inspection, Full Range of Motion Extremities: Normal Inspection, Normal Range of Motion, Non-Tender, No Pedal Edema, Normal Capillary Refill. No: Deepa's Sign Neurological: Alert, Oriented, CN II-XII Intact, Normal Reflexes, No Motor/ Sensory Deficits Psychiatric: Normal Affect, Normal Mood Skin Exam: Warm, Dry, Intact, Normal Color, No Rash Lymphatic: No Adenopathy Course - Vital Signs Text/Narrative:: I discussed with the patient all of her diagnostic testing. Her HEART score is a 1. I told her that she must have a mammogram done. She will be discharged. She agrees with the discharge plan. Last Recorded V/S: Last Vital Signs Temp 98.2 F 08/07/19 15:21 Pulse 64 08/07/19 17:25 Resp 16 08/07/19 17:25 BP 113/53 L 08/07/19 17:25 Pulse Ox 98 08/07/19 17:25 - Orders/Labs/Meds Orders: Active Orders 24 hr Category Date Time Status EKG 12 Lead [EKG Documentation Completion] [RC] STAT Care 08/07/19 15:26 Active Labs: Laboratory Tests 08/07/19 08/07/19 08/07/19 Range/Units 16:32 16:32 16:43 WBC 11.93 H (4.0-11.0) K/uL RBC 4.64 (4.30-5.90) M/uL Hgb 13.2 (12.0-16.0) g/dL Hct 41.1 (36.0-46.0) % MCV 88.6 (80.0-98.0) fL MCH 28.4 (27.0-32.0) pg MCHC 32.1 (31.0-37.0) g/dL RDW Std Deviation 48.0 (28.0-62.0) fl RDW Coeff of Teresa 15 (11.0-15.0) % Plt Count 321 (150-400) K/uL MPV 10.00 (7.40-12.00) fL Add Manual Diff YES Neutrophils % (Manual) 64 (48.0-80.0) % Lymphocytes % (Manual) 31 (16.0-40.0) % Monocytes % (Manual) 4 (0.0-15.0) % Eosinophils % (Manual) 1 (0.0-7.0) % Nucleated RBC % 0.0 /100WBC Absolute Seg Neuts 7.6 H (1.4-5.7) Lymphocytes # (Manual) 3.7 H (0.6-2.4) Monocytes # (Manual) 0.5 (0.0-0.8) Eosinophils # (Manual) 0.1 (0.0-0.7) Nucleated RBCs # 0 K/uL D-Dimer, Quantitative (0.0-0.50) mg/L FEU Sodium (136-145) mmol/L Potassium (3.5-5.1) mmol/L Chloride (98-107) mmol/L Carbon Dioxide (21.0-32.0) mmol/L BUN (7.0-18.0) mg/dL Creatinine (0.6-1.0) mg/dL Est Cr Clr Drug Dosing mL/min Estimated GFR (MDRD) ml/min Glucose (74-106) mg/dL Calcium (8.5-10.1) mg/dL Total Bilirubin (0.2-1.0) mg/dL AST (15-37) IU/L ALT (14-63) IU/L Alkaline Phosphatase (46-116) U/L Troponin I (0.000-0.056) ng/mL Total Protein (6.4-8.2) g/dL Albumin (3.4-5.0) g/dL Globulin (2.6-4.0) g/dL Albumin/Globulin Ratio (0.9-1.6) TSH 3rd Generation (0.36-3.74) uIU/mL Urine Color YELLOW Urine Appearance CLEAR Urine pH 6.0 (5.0-8.0) Ur Specific [place] <= 1.005 (1.001-1.035) Urine Protein NEGATIVE (NEGATIVE) mg/dL Urine Glucose (UA) NEGATIVE (NEGATIVE) mg/dL Urine Ketones NEGATIVE (NEGATIVE) mg/dL Urine Occult Blood NEGATIVE (NEGATIVE) Urine Nitrite NEGATIVE (NEGATIVE) Urine Bilirubin NEGATIVE (NEGATIVE) Urine Urobilinogen 0.2 (<2.0) EU/dL Ur Leukocyte Esterase NEGATIVE (NEGATIVE) Urine HCG, Qual NEGATIVE (NEGATIVE) 08/07/19 08/07/19 Range/Units 16:43 16:43 WBC (4.0-11.0) K/uL RBC (4.30-5.90) M/uL Hgb (12.0-16.0) g/dL Hct (36.0-46.0) % MCV (80.0-98.0) fL MCH (27.0-32.0) pg MCHC (31.0-37.0) g/dL RDW Std Deviation (28.0-62.0) fl RDW Coeff of Teresa (11.0-15.0) % Plt Count (150-400) K/uL MPV (7.40-12.00) fL Add Manual Diff Neutrophils % (Manual) (48.0-80.0) % Lymphocytes % (Manual) (16.0-40.0) % Monocytes % (Manual) (0.0-15.0) % Eosinophils % (Manual) (0.0-7.0) % Nucleated RBC % /100WBC Absolute Seg Neuts (1.4-5.7) Lymphocytes # (Manual) (0.6-2.4) Monocytes # (Manual) (0.0-0.8) Eosinophils # (Manual) (0.0-0.7) Nucleated RBCs # K/uL D-Dimer, Quantitative 0.40 (0.0-0.50) mg/L FEU Sodium 141 (136-145) mmol/L Potassium 3.8 (3.5-5.1) mmol/L Chloride 106 (98-107) mmol/L Carbon Dioxide 24.7 (21.0-32.0) mmol/L BUN 10 (7.0-18.0) mg/dL Creatinine 0.6 (0.6-1.0) mg/dL Est Cr Clr Drug Dosing 133.27 mL/min Estimated GFR (MDRD) > 60.0 ml/min Glucose 98 (74-106) mg/dL Calcium 9.2 (8.5-10.1) mg/dL Total Bilirubin 0.3 (0.2-1.0) mg/dL AST 16 (15-37) IU/L ALT 21 (14-63) IU/L Alkaline Phosphatase 103 (46-116) U/L Troponin I < 0.050 (0.000-0.056) ng/mL Total Protein 7.7 (6.4-8.2) g/dL Albumin 3.8 (3.4-5.0) g/dL Globulin 3.9 (2.6-4.0) g/dL Albumin/Globulin Ratio 1.0 (0.9-1.6) TSH 3rd Generation 2.31 (0.36-3.74) uIU/mL Urine Color Urine Appearance Urine pH (5.0-8.0) Ur Specific [place] (1.001-1.035) Urine Protein (NEGATIVE) mg/dL Urine Glucose (UA) (NEGATIVE) mg/dL Urine Ketones (NEGATIVE) mg/dL Urine Occult Blood (NEGATIVE) Urine Nitrite (NEGATIVE) Urine Bilirubin (NEGATIVE) Urine Urobilinogen (<2.0) EU/dL Ur Leukocyte Esterase (NEGATIVE) Urine HCG, Qual (NEGATIVE) Departure - Departure Time of Disposition: 18:55 Disposition: Home, Self-Care 01 Condition: Good Clinical Impression: Atypical chest pain, Breast lump or mass Instructions: Nonspecific Chest Pain, [id number] Referrals: PCP,None [Primary Care Provider] - Forms: ED Department Discharge Additional Instructions: Be sure to get your mammogram. You have very lumpy breast and with your history of nipple discharge from the left breast it is a must. Take all medications as directed. Follow up with your PCP in the next two to four days. Rest for the next 24 hours. Warm compresses to the chest wall for comfort. Return to the ED if your condition gets worse or should you have any questions or concerns. The following information is given to patients seen in the emergency department who are being discharged to home. This information is to outline your options for follow-up care. We provide all patients seen in our emergency department with a follow-up referral. The need for follow-up, as well as the timing and circumstances, are variable depending upon the specifics of your emergency department visit. If you don't have a primary care physician on staff, we will provide you with a referral. We always advise you to contact your personal physician following an emergency department visit to inform them of the circumstance of the visit and for follow-up with them and/or the need for any referrals to a consulting specialist. The emergency department will also refer you to a specialist when appropriate. This referral assures that you have the opportunity for follow-up care with a specialist. All of these measure are taken in an effort to provide you with optimal care, which includes your follow-up. Under all circumstances we always encourage you to contact your private physician who remains a resource for coordinating your care. When calling for follow-up care, please make the office aware that this follow-up is from your recent emergency room visit. If for any reason you are refused follow-up, please contact the [facility] Emergency Department at and asked to speak to the emergency department charge nurse Sepsis Event Note - Evaluation Sepsis Screening Result: No Definite Risk - Focused Exam Vital Signs: Vital Signs Temp Pulse Resp BP Pulse Ox 08/07/19 17:25 64 16 113/53 L 98 08/07/19 15:21 98.2 F 88 18 142/71 H 99 Date Exam was Performed: 08/07/19 Time Exam was Performed: 18:51 - My Orders Last 24 Hours: My Active Orders 08/07/19 15:26 EKG 12 Lead [EKG Documentation Completion] [RC] STAT - Assessment/Plan Last 24 Hours: My Active Orders 08/07/19 15:26 EKG 12 Lead [EKG Documentation Completion] [RC] STAT
[2019-08-07 17:26] LABS: BLOOD UREA NITROGEN,BUN 10 mg/dL (7.0-18.0); CARBON DIOXIDE,CO2 24.7 mmol/L (21.0-32.0); CHLORIDE,CL 106 mmol/L (98-107); GLUCOSE RANDOM 98 mg/dL (74-106); POTASSIUM,K 3.8 mmol/L (3.5-5.1); SODIUM,NA 141 mmol/L (136-145)
--- NOTE | 2019-08-07 17:27 | CR ---
Chest: 2 views of the chest were obtained. Comparison: Prior chest x-ray of 11/28/18. Heart size and mediastinum are normal. Lungs are clear with no acute parenchymal change. Bony structures appear within normal limits. Impression: 1. Nothing acute is seen on 2 view chest x-ray. Diagnostic code #1 This report was dictated in [place] Standard Time
[2019-08-07] MEDS ORDERED: Ibuprofen 800 MG Tab PO ONE (18:52)
[2019-08-07 19:15] VITALS: BP 110/58; PULSE 60
== END 2019-08-07 19:21 | disposition home or self-care (01) ==
LOC: MW.ED 15:14
DX: R07.89 Other chest pain (principal); N63.0 Unspecified lump in unspecified breast; Z88.0 Allergy status to penicillin; Z91.018 Allergy to other foods; Z91.09 Other allergy status, other than to drugs and biological substances
CPT/HCPCS: 36415; 71046; 71046-26; 80053; 81003; 81025; 84443; 84484; 85025; 85379; 93005; 99285-25

== ENCOUNTER 2019-09-11 09:23 | Emergency (ER) | payer OTHER ==
--- NOTE | 2019-09-11 10:04 | EDM.PDOC ---
ED HPI GENERAL MEDICAL PROBLEM - General Chief Complaint: Gastrointestinal Problem Stated Complaint: BLOOD IN STOOL Time Seen by Provider: 09/11/19 09:48 Source of Information: Reports: Patient History Limitations: Reports: No Limitations - History of Present Illness INITIAL COMMENTS - FREE TEXT/NARRATIVE: This 33 year old female is admitted to the ED with a chief complaint of lower abdominal pain with blood in her stools for 36 hours. She states that the pain in dull with pain into her left flank. She states that it hurts to lay on either side. She denies any nausea or vomiting. No urinary symptoms. She denies any other symptoms. She denies any history of hemorrhoids. Onset: Gradual (36 hours) Location: Reports: Abdomen (lower abdomen into left flank) Severity: Mild (at this time and more concerned about rectal bleeding.) - Related Data Allergies Allergy/AdvReac Type Severity Reaction Status Date / Time Penicillins Allergy Hives Verified 09/11/19 09:31 Clear medical tape Allergy Other Uncoded 09/11/19 09:31 Green grapes Allergy Hives Uncoded 09/11/19 09:31 Home Meds: Home Meds . 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: LMP 02/23/15 Musculoskeletal History: Reports: Back Pain, Chronic Other Musculoskeletal History: Some back pain low and upper, Hx; fractured Left Eye socket Neurological History: Reports: None Psychiatric History: Reports: Anxiety Endocrine/Metabolic History: Reports: None Hematologic History: Reports: None Immunologic History: Reports: None Oncologic (Cancer) History: Reports: None Dermatologic History: Reports: None - Infectious Disease History Infectious Disease History: Reports: Chicken Pox - Past Surgical History Head Surgeries/Procedures: Reports: None Other GI Surgeries/Procedures: Diagnostic Laparoscopy Other Female Surgeries/Procedures: ovarian cyct, 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 Social & Family History - Family History Family Medical History: Noncontributory - Tobacco Use Smoking Status *Q: Current Every Day Smoker Years of Tobacco use: 10 Packs/Tins Daily: 1 - Caffeine Use Caffeine Use: Reports: Soda - Recreational Drug Use Recreational Drug Use: No ED ROS GENERAL - Review of Systems Review Of Systems: See Below Constitutional: Reports: No Symptoms HEENT: Reports: No Symptoms Respiratory: Reports: No Symptoms Cardiovascular: Reports: No Symptoms Endocrine: Reports: No Symptoms GI/Abdominal: Reports: Abdominal Pain, Bloody Stool : Reports: No Symptoms Musculoskeletal: Reports: No Symptoms Skin: Reports: No Symptoms Neurological: Reports: No Symptoms ED EXAM, GI/ABD - Physical Exam Exam: See Below Exam Limited By: No Limitations General Appearance: Alert, WD/WN, No Apparent Distress Throat/Mouth: Normal Inspection, Normal Oropharynx Head: Atraumatic, Normocephalic Neck: Normal Inspection, Supple, Non-Tender Respiratory/Chest: No Respiratory Distress, Lungs Clear, Normal Breath Sounds, Chest Non-Tender Cardiovascular: Normal Peripheral Pulses, Regular Rate, Rhythm, No Edema, No Gallop, No Murmur GI/Abdominal Exam: Normal Bowel Sounds, Soft, No Distention, No Abnormal Bruit, No Mass, Other (very mild tenderness of the lower abdomen.). No: Guarding, Rebound, Hernia (Female) Exam: Deferred Rectal (Female) Exam: Heme + Stool, Hemorrhoids (possible internal hemorrhoids noted). No: Rectal Fissure Back Exam: Normal Inspection Extremities: Normal Inspection, Normal Range of Motion, Normal Capillary Refill Neurological: Alert, Oriented (times 4), CN II-XII Intact, Normal Reflexes, No Motor/Sensory Deficits Psychiatric: Normal Affect, Normal Mood Skin Exam: Warm, Dry, Intact, Normal Color, No Rash Lymphatic: No Adenopathy Course - Vital Signs Text/Narrative:: I discussed with this patient all of her diagnostic test including her CT of the abdomen and pelvis which reveals multiple gall stones. The patient states that she has had those stones for sometime and that she will eventually have her gallbladder removed. The patient if feeling much better at this time. She will be discharged at this time. She agrees with the discharge plan. Last Recorded V/S: Last Vital Signs Temp 97.7 F 09/11/19 09:31 Pulse 82 09/11/19 09:31 Resp 16 04/03/20 09:31 BP 148/85 H 09/11/19 09:31 Pulse Ox 96 09/11/19 09:31 - Orders/Labs/Meds Labs: Laboratory Tests 09/11/19 09/11/19 09/11/19 Range/Units 10:10 10:10 10:10 WBC 7.84 (4.0-11.0) K/uL RBC 4.88 (4.30-5.90) M/uL Hgb 14.0 (12.0-16.0) g/dL Hct 43.0 (36.0-46.0) % MCV 88.1 (80.0-98.0) fL MCH 28.7 (27.0-32.0) pg MCHC 32.6 (31.0-37.0) g/dL RDW Std Deviation 46.7 (28.0-62.0) fl RDW Coeff of Teresa 14 (11.0-15.0) % Plt Count 333 (150-400) K/uL MPV 10.30 (7.40-12.00) fL Neut % (Auto) 66.0 (48.0-80.0) % Lymph % (Auto) 25.1 (16.0-40.0) % [place] % (Auto) 7.5 (0.0-15.0) % Eos % (Auto) 1.1 (0.0-7.0) % Baso % (Auto) 0.3 (0.0-1.5) % Neut # (Auto) 5.2 (1.4-5.7) K/uL Lymph # (Auto) 2.0 (0.6-2.4) K/uL [place] # (Auto) 0.6 (0.0-0.8) K/uL Eos # (Auto) 0.1 (0.0-0.7) K/uL Baso # (Auto) 0.0 (0.0-0.1) K/uL Nucleated RBC % 0.0 /100WBC Nucleated RBCs # 0 K/uL Sodium 137 (136-145) mmol/L Potassium 3.7 (3.5-5.1) mmol/L Chloride 102 (98-107) mmol/L Carbon Dioxide 24.9 (21.0-32.0) mmol/L BUN 9 (7.0-18.0) mg/dL Creatinine 0.6 (0.6-1.0) mg/dL Est Cr Clr Drug Dosing 133.27 mL/min Estimated GFR (MDRD) > 60.0 ml/min Glucose 98 (74-106) mg/dL Calcium 9.1 (8.5-10.1) mg/dL Total Bilirubin 0.5 (0.2-1.0) mg/dL AST 16 (15-37) IU/L ALT 22 (14-63) IU/L Alkaline Phosphatase 95 (46-116) U/L Total Protein 7.8 (6.4-8.2) g/dL Albumin 3.7 (3.4-5.0) g/dL Globulin 4.1 H (2.6-4.0) g/dL Albumin/Globulin Ratio 0.9 (0.9-1.6) HCG, Qual NEGATIVE (NEG) Urine Color Urine Appearance Urine pH (5.0-8.0) Ur Specific [place] (1.001-1.035) Urine Protein (NEGATIVE) mg/dL Urine Glucose (UA) (NEGATIVE) mg/dL Urine Ketones (NEGATIVE) mg/dL Urine Occult Blood (NEGATIVE) Urine Nitrite (NEGATIVE) Urine Bilirubin (NEGATIVE) Urine Urobilinogen (<2.0) EU/dL Ur Leukocyte Esterase (NEGATIVE) Urine RBC (0-2/HPF) Urine WBC (0-5/HPF) Ur Epithelial Cells (NONE-FEW) Urine Bacteria (NEGATIVE) 09/11/19 Range/Units 10:30 WBC (4.0-11.0) K/uL RBC (4.30-5.90) M/uL Hgb (12.0-16.0) g/dL Hct (36.0-46.0) % MCV (80.0-98.0) fL MCH (27.0-32.0) pg MCHC (31.0-37.0) g/dL RDW Std Deviation (28.0-62.0) fl RDW Coeff of Teresa (11.0-15.0) % Plt Count (150-400) K/uL MPV (7.40-12.00) fL Neut % (Auto) (48.0-80.0) % Lymph % (Auto) (16.0-40.0) % [place] % (Auto) (0.0-15.0) % Eos % (Auto) (0.0-7.0) % Baso % (Auto) (0.0-1.5) % Neut # (Auto) (1.4-5.7) K/uL Lymph # (Auto) (0.6-2.4) K/uL [place] # (Auto) (0.0-0.8) K/uL Eos # (Auto) (0.0-0.7) K/uL Baso # (Auto) (0.0-0.1) K/uL Nucleated RBC % /100WBC Nucleated RBCs # K/uL Sodium (136-145) mmol/L Potassium (3.5-5.1) mmol/L Chloride (98-107) mmol/L Carbon Dioxide (21.0-32.0) mmol/L BUN (7.0-18.0) mg/dL Creatinine (0.6-1.0) mg/dL Est Cr Clr Drug Dosing mL/min Estimated GFR (MDRD) ml/min Glucose (74-106) mg/dL Calcium (8.5-10.1) mg/dL Total Bilirubin (0.2-1.0) mg/dL AST (15-37) IU/L ALT (14-63) IU/L Alkaline Phosphatase (46-116) U/L Total Protein (6.4-8.2) g/dL Albumin (3.4-5.0) g/dL Globulin (2.6-4.0) g/dL Albumin/Globulin Ratio (0.9-1.6) HCG, Qual (NEG) Urine Color YELLOW Urine Appearance CLEAR Urine pH 5.5 (5.0-8.0) Ur Specific [place] 1.010 (1.001-1.035) Urine Protein NEGATIVE (NEGATIVE) mg/dL Urine Glucose (UA) NEGATIVE (NEGATIVE) mg/dL Urine Ketones NEGATIVE (NEGATIVE) mg/dL Urine Occult Blood TRACE-INTACT H (NEGATIVE) Urine Nitrite NEGATIVE (NEGATIVE) Urine Bilirubin NEGATIVE (NEGATIVE) Urine Urobilinogen 0.2 (<2.0) EU/dL Ur Leukocyte Esterase NEGATIVE (NEGATIVE) Urine RBC 0-2 (0-2/HPF) Urine WBC 0-1 (0-5/HPF) Ur Epithelial Cells FEW (NONE-FEW) Urine Bacteria FEW (NEGATIVE) Departure - Departure Time of Disposition: 13:47 Disposition: Home, Self-Care 01 Condition: Good Clinical Impression: Abdominal pain of unknown etiology Cholelithiases Qualifiers: Cholelithiasis location: gallbladder and bile duct Cholecystitis presence: without cholecystitis - Discharge Information *PRESCRIPTION DRUG MONITORING PROGRAM REVIEWED*: Yes *COPY OF PRESCRIPTION DRUG MONITORING REPORT IN PATIENT DREA: Yes Instructions: Cholelithiasis, [id number], Abdominal Pain, Adult, [id number] Referrals: PCP,None [Primary Care Provider] - Forms: ED Department Discharge Additional Instructions: Avoid fatty foods. Follow up with your PCP in the next two to four days. Clear liquids for the next 12 hours and advance your diet as tolerated. Rest for the next 24 hours. Return to the ED if your condition gets worse or should you have any questions or concerns. The following information is given to patients seen in the emergency department who are being discharged to home. This information is to outline your options for follow-up care. We provide all patients seen in our emergency department with a follow-up referral. The need for follow-up, as well as the timing and circumstances, are variable depending upon the specifics of your emergency department visit. If you don't have a primary care physician on staff, we will provide you with a referral. We always advise you to contact your personal physician following an emergency department visit to inform them of the circumstance of the visit and for follow-up with them and/or the need for any referrals to a consulting specialist. The emergency department will also refer you to a specialist when appropriate. This referral assures that you have the opportunity for follow-up care with a specialist. All of these measure are taken in an effort to provide you with optimal care, which includes your follow-up. Under all circumstances we always encourage you to contact your private physician who remains a resource for coordinating your care. When calling for follow-up care, please make the office aware that this follow-up is from your recent emergency room visit. If for any reason you are refused follow-up, please contact the [facility] Emergency Department at and asked to speak to the emergency department charge nurse. Sepsis Event Note - Evaluation Sepsis Screening Result: No Definite Risk - Focused Exam Vital Signs: Vital Signs Temp Pulse Resp BP Pulse Ox 09/11/19 09:31 97.7 F 82 16 148/85 H 96 Date Exam was Performed: 09/11/19 Time Exam was Performed: 13:38
[2019-09-11 10:40] LABS: BLOOD UREA NITROGEN,BUN 9 mg/dL (7.0-18.0); CARBON DIOXIDE,CO2 24.9 mmol/L (21.0-32.0); CHLORIDE,CL 102 mmol/L (98-107); GLUCOSE RANDOM 98 mg/dL (74-106); POTASSIUM,K 3.7 mmol/L (3.5-5.1); SODIUM,NA 137 mmol/L (136-145)
--- NOTE | 2019-09-11 12:25 | CT ---
CT abdomen and pelvis Technique: Multiple axial sections were obtained from above the dome of the diaphragm inferiorly through the pubic symphysis. Intravenous and oral contrast not utilized. Comparison: Prior CT abdomen and pelvis exam of 04/27/16. Findings: Visualized lung bases show nothing acute. Liver contains no focal parenchymal abnormality. Spleen appears within normal limits. Calcified gallstone is seen within the gallbladder measuring 1.2 cm. 2nd calcification is seen which may be located within the gallbladder neck, cystic duct or even within the CBD and measures 1.1 cm. Adrenal glands show no nodule. Right kidney shows a small nonobstructing stone. Kidneys otherwise appear within normal limits. Pancreas shows no discrete abnormality. Aorta shows no aneurysm. No retroperitoneal adenopathy or mesenteric abnormalities are seen. Appendix is seen which is normal in size. No pelvic mass or adenopathy is seen. No free fluid or inflammatory change is appreciated. Bone window settings were reviewed which shows disc space narrowing which is most severe at L4-5 with vacuum phenomena. No acute osseous finding is appreciated. Impression: 1. Calcified gallstone. 2nd calcification located within either within the gallbladder neck, cystic duct or even within the CBD. MRCP would be needed to further define if clinically indicated. 2. No other acute abnormality is appreciated on noncontrast CT study of the abdomen and pelvis. Diagnostic code #3 This report was dictated in MDT
[2019-09-11 14:18] VITALS: BP 150/73; PULSE 67
== END 2019-09-11 14:00 | disposition home or self-care (01) ==
LOC: MW.ED 09:23
DX: K80.70 Calculus of gallbladder and bile duct without cholecystitis without obstruction (principal); F17.210 Nicotine dependence, cigarettes, uncomplicated; Z88.0 Allergy status to penicillin; Z91.018 Allergy to other foods; Z91.048 Other nonmedicinal substance allergy status
CPT/HCPCS: 36415; 74176; 74176-26; 80053; 81001; 84703; 85025; 99284; 99284-25

== ENCOUNTER 2019-09-16 12:41 | Emergency (ER) | payer OTHER ==
--- NOTE | 2019-09-16 13:27 | EDM.PDOC ---
ED HPI GENERAL MEDICAL PROBLEM - General Chief Complaint: Abdominal Pain Stated Complaint: GALLBLADDER ATTACK Time Seen by Provider: 09/16/19 12:50 Source of Information: Reports: Patient History Limitations: Reports: No Limitations - History of Present Illness INITIAL COMMENTS - FREE TEXT/NARRATIVE: HISTORY AND PHYSICAL: History of present illness: Patient is a 33-year-old female who presents to the ED today with concern of an episode of right upper quadrant abdominal pain that occurred about an hour prior to arrival to the ED. Patient states that she drank some orange juice and started having right upper quadrant abdominal pain and states that this was sharp. Patient states that the episode lasted in total about 20 minutes and resolved just before coming to the ED. Patient states she is not currently having any pain at this time or any symptoms at this time. Patient states that she has had similar episodes of pain in the past and was told that she had gallbladder issues. Patient states that she has not followed up to get her gallbladder removed. Patient denies any other symptoms or concerns. Patient denies fever, chills, chest pain, shortness of breath, or cough. Denies headache, neck stiff ness, change in vision, syncope, or near syncope. Denies nausea, vomiting, abdominal pain, diarrhea, constipation, or dysuria. Has not noted any blood in urine or stool. Patient has been eating and drinking appropriately. Review of systems: As per history of present illness and below otherwise all systems reviewed and negative. Past medical history: As per history of present illness and as reviewed below otherwise noncontributory. Surgical history: As per history of present illness and as reviewed below otherwise noncontributory. Social history: See social history for further information Family history: As per history of present illness and as reviewed below otherwise noncontributory. Physical exam: General: Patient is alert, oriented, and in no acute distress. Patient sitting comfortably on exam table. HEENT: Atraumatic, normocephalic, pupils equal and reactive bilaterally, negative for conjunctival pallor or scleral icterus, mucous membranes moist, TMs normal bilaterally, throat clear, neck supple, nontender, trachea midline. No drooling or trismus noted. No meningeal signs. No hot potato voice noted. Lungs: Clear to auscultation, breath sounds equal bilaterally, chest nontender. Heart: S1S2, regular rate and rhythm without overt murmur Abdomen: Soft, nondistended, nontender. Negative massey sign. Negative for masses or hepatosplenomegaly. Negative for costovertebral tenderness. Pelvis: Stable nontender. Genitourinary: Deferred. Rectal: Deferred. Skin: Intact, warm, dry. No lesions or rashes noted. Extremities: Atraumatic, negative for cords or calf pain. Neurovascular unremarkable. Neuro: Awake, alert, oriented. Cranial nerves II through XII unremarkable. Cerebellum unremarkable. Motor and sensory unremarkable throughout. Exam nonfocal. Notes: Discussed importance for follow-up with a primary care provider as well as general surgery. Voices understanding and is agreeable to plan of care. Denies any further questions or concerns at this time. Diagnostics: EKG, CBC, CMP, Lipase, (patient refuses urine sample) Therapeutics: None Prescription: None Impression: H/O RUQ pain Medical screening exam Plan: 1. You can alternate ibuprofen and Tylenol as directed for pain and discomfort. 2. Follow-up with a general surgeon and primary care provider as discussed. Return to the ED as needed and as discussed. Definitive disposition and diagnosis as appropriate pending reevaluation and review of above. Abdominal Pain Score (Numeric/FACES): 5 - Related Data Allergies Allergy/AdvReac Type Severity Reaction Status Date / Time Penicillins Allergy Hives Verified 09/16/19 12:52 Clear medical tape Allergy Other Uncoded 09/16/19 12:52 Green grapes Allergy Hives Uncoded 09/16/19 12:52 Home Meds: Home Meds . 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: Reports: 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 Other SENIOR FUNCTIONAL ANALYST History: LMP 02/23/15 Musculoskeletal History: Reports: Back Pain, Chronic Other Musculoskeletal History: Some back pain low and upper, Hx; fractured Left Eye socket Neurological History: Reports: None Psychiatric History: Reports: Anxiety Endocrine/Metabolic History: Reports: None Hematologic History: Reports: None Immunologic History: Reports: None Oncologic (Cancer) History: Reports: None Dermatologic History: Reports: None - Infectious Disease History Infectious Disease History: Reports: Chicken Pox - Past Surgical History Head Surgeries/Procedures: Reports: None Other GI Surgeries/Procedures: Diagnostic Laparoscopy Other Female Surgeries/Procedures: ovarian cyct, uterine biopsy for endomitriosis Social & Family History - Family History Family Medical History: Noncontributory - Tobacco Use Smoking Status *Q: Current Every Day Smoker Years of Tobacco use: 10 Packs/Tins Daily: 0.5 - Caffeine Use Caffeine Use: Reports: Soda - Recreational Drug Use Recreational Drug Use: No ED ROS GENERAL - Review of Systems Review Of Systems: Comprehensive ROS is negative, except as noted in HPI. ED EXAM, GENERAL - Physical Exam Exam: See Below (see dictation) Course - Vital Signs Last Recorded V/S: Last Vital Signs Temp 97.3 F 09/16/19 12:52 Pulse 65 09/16/19 12:52 Resp 18 09/16/19 12:52 BP 153/87 H 09/16/19 12:52 Pulse Ox 98 09/16/19 12:52 - Orders/Labs/Meds Orders: Active Orders 24 hr Category Date Time Status EKG Documentation Completion [RC] STAT Care 09/16/19 12:58 Active HCG QUALITATIVE,URINE [URCHEM] Stat Lab 09/16/19 12:58 Ordered UA RFX RHINA AND CULT IF INDIC [URIN] Stat Lab 09/16/19 12:58 Ordered Labs: Laboratory Tests 09/16/19 09/16/19 Range/Units 13:14 13:14 WBC 10.24 (4.0-11.0) K/uL RBC 4.92 (4.30-5.90) M/uL Hgb 13.9 (12.0-16.0) g/dL Hct 43.3 (36.0-46.0) % MCV 88.0 (80.0-98.0) fL MCH 28.3 (27.0-32.0) pg MCHC 32.1 (31.0-37.0) g/dL RDW Std Deviation 46.9 (28.0-62.0) fl RDW Coeff of Teresa 14 (11.0-15.0) % Plt Count 355 (150-400) K/uL MPV 10.10 (7.40-12.00) fL Add Manual Diff YES Neutrophils % (Manual) 60 (48.0-80.0) % Lymphocytes % (Manual) 34 (16.0-40.0) % Monocytes % (Manual) 4 (0.0-15.0) % Eosinophils % (Manual) 1 (0.0-7.0) % Basophils % (Manual) 1 (0.0-1.5) % Nucleated RBC % 0.0 /100WBC Absolute Seg Neuts 6.1 H (1.4-5.7) Lymphocytes # (Manual) 3.5 H (0.6-2.4) Monocytes # (Manual) 0.4 (0.0-0.8) Eosinophils # (Manual) 0.1 (0.0-0.7) Basophils # (Manual) 0.1 (0.0-0.1) Nucleated RBCs # 0 K/uL Sodium 140 (136-145) mmol/L Potassium 3.9 (3.5-5.1) mmol/L Chloride 104 (98-107) mmol/L Carbon Dioxide 26.1 (21.0-32.0) mmol/L BUN 7 (7.0-18.0) mg/dL Creatinine 0.7 (0.6-1.0) mg/dL Est Cr Clr Drug Dosing 114.23 mL/min Estimated GFR (MDRD) > 60.0 ml/min Glucose 95 (74-106) mg/dL Calcium 9.0 (8.5-10.1) mg/dL Total Bilirubin 0.4 (0.2-1.0) mg/dL AST 13 L (15-37) IU/L ALT 20 (14-63) IU/L Alkaline Phosphatase 97 (46-116) U/L Total Protein 7.8 (6.4-8.2) g/dL Albumin 3.8 (3.4-5.0) g/dL Globulin 4.0 (2.6-4.0) g/dL Albumin/Globulin Ratio 0.9 (0.9-1.6) Lipase 72 L (73-393) U/L Departure - Departure Time of Disposition: 14:05 Disposition: Home, Self-Care 01 Clinical Impression: History of abdominal pain, Encounter for medical screening examination - Discharge Information Referrals: Doni,Eva E, MD [Primary Care Provider] - Forms: ED Department Discharge Additional Instructions: The following information is given to patients seen in the emergency department who are being discharged to home. This information is to outline your options for follow-up care. We provide all patients seen in our emergency department with a follow-up referral. The need for follow-up, as well as the timing and circumstances, are variable depending upon the specifics of your emergency department visit. If you don't have a primary care physician on staff, we will provide you with a referral. We always advise you to contact your personal physician following an emergency department visit to inform them of the circumstance of the visit and for follow-up with them and/or the need for any referrals to a consulting specialist. The emergency department will also refer you to a specialist when appropriate. This referral assures that you have the opportunity for follow-up care with a specialist. All of these measure are taken in an effort to provide you with optimal care, which includes your follow-up. Under all circumstances we always encourage you to contact your private physician who remains a resource for coordinating your care. When calling for follow-up care, please make the office aware that this follow-up is from your recent emergency room visit. If for any reason you are refused follow-up, please contact the [facility] at and asked to speak to the emergency department charge nurse. [facility] [address] [place], [place] [id number] [address] [address] [facility] Professional Building [address] [facility], [address] [place] [address] 1. You can alternate ibuprofen and Tylenol as directed for pain and discomfort. 2. Follow-up with a general surgeon and primary care provider as discussed. Return to the ED as needed and as discussed. Sepsis Event Note - Evaluation Sepsis Screening Result: No Definite Risk - Focused Exam Vital Signs: Vital Signs Temp Pulse Resp BP Pulse Ox 09/16/19 12:52 97.3 F 65 18 153/87 H 98 Date Exam was Performed: 09/16/19 Time Exam was Performed: 14:05 - My Orders Last 24 Hours: My Active Orders 09/16/19 12:58 EKG Documentation Completion [RC] STAT HCG QUALITATIVE,URINE [URCHEM] Stat UA RFX RHINA AND CULT IF INDIC [URIN] Stat - Assessment/Plan Last 24 Hours: My Active Orders 09/16/19 12:58 EKG Documentation Completion [RC] STAT HCG QUALITATIVE,URINE [URCHEM] Stat UA RFX RHINA AND CULT IF INDIC [URIN] Stat
[2019-09-16 13:43] LABS: BLOOD UREA NITROGEN,BUN 7 mg/dL (7.0-18.0); CARBON DIOXIDE,CO2 26.1 mmol/L (21.0-32.0); CHLORIDE,CL 104 mmol/L (98-107); GLUCOSE RANDOM 95 mg/dL (74-106); LIPASE 72 U/L (73-393); POTASSIUM,K 3.9 mmol/L (3.5-5.1); SODIUM,NA 140 mmol/L (136-145)
[2019-09-16 14:29] VITALS: BP 121/81; PULSE 66
== END 2019-09-16 14:20 | disposition home or self-care (01) ==
LOC: MW.ED 12:41
DX: Z13.9 Encounter for screening, unspecified (principal); F17.210 Nicotine dependence, cigarettes, uncomplicated; Z88.0 Allergy status to penicillin; Z91.048 Other nonmedicinal substance allergy status; Z91.018 Allergy to other foods
CPT/HCPCS: 36415; 80053; 83690; 85025; 93005; 99282; 99284-25

== ENCOUNTER 2020-09-09 05:54 | Emergency (ER) | payer OTHER ==
[2020-09-09] MEDS ORDERED: Ketorolac 15 MG/ML SDV IVPUSH ONE (06:28)
[2020-09-09] MEDS ORDERED: Sodium Chloride 0.9% 1,000 ML IV SCH (06:30)
--- NOTE | 2020-09-09 06:46 | EDM.PDOC ---
<Enio Brice - Last Filed: 09/09/20 07:01> ED HPI GENERAL MEDICAL PROBLEM - General Chief Complaint: Abdominal Pain Stated Complaint: ABDOMINAL PAIN Time Seen by Provider: 09/09/20 06:13 - History of Present Illness INITIAL COMMENTS - FREE TEXT/NARRATIVE: CHIEF COMPLAINT(S): Left flank pain HISTORY OF PRESENT ILLNESS: This is a 34-year-old woman without any significant past medical history who comes to the emergency department with a chief complaint of left flank pain. The patient states that approximately 4 and half hours prior to arrival she started to experience pressure and pain in her private parts. She states that she also had some associated left flank pain that radiated down her to her pelvis and her leg. She describes the pain as crampy and intermittent rated 10 out of 10. She denied any nausea, vomiting, dysuria, hematuria. She states that she does have some vaginal bleeding as she is on her period. She states that she normally does have cramping during her period however the left flank pain is new. She states that upon arrival she went to pee and has not been able to pee. She states that she did pass a clot and her pain had improved after that. She stated that this feels different than her normal menstrual cramps. She states that starting at 2 AM she started to feel the urgency to pee but she was never able to urinate. She denies any vaginal discharge. She states that she is sexually active with one partner and does not use protection. She is not concerned about sexually transmitted infections. She states that she did take Tylenol before work and is uncertain if that helped or not. She states that she does have a family history of kidney stones but denies any personal history of kidney stones. She does not know any aggravating factors. REVIEW OF SYSTEMS: Constitutional: Denies fever, chills. Eyes: Denies eye pain Ears, Nose, Mouth, & Throat: Denies earache Cardiovascular: Denies chest pain Respiratory: Denies shortness of breath Gastrointestinal: Denies Nausea, vomiting, diarrhea, hematochezia. Genitourinary: Positive for left flank pain, vaginal bleeding, urinary urgency, decreased urination. Denies hematuria or dysuria Skin:Denies a rash MSK: Denies joint pain Neurological: Denies blurred vision Psychiatric: Denies depression PAST MEDICAL HISTORY: As per history of present illness and as reviewed below otherwise noncontributory. SURGICAL HISTORY: As per history of present illness and as reviewed below otherwise noncontributory. LMP: Currently on her period SOCIAL HISTORY: As per history of present illness and as reviewed below otherwise noncontributory. FAMILY HISTORY: As per history of present illness and as reviewed below otherwise noncontributory. EXAMINATION OF ORGAN SYSTEMS/BODY AREAS: Constitutional: Blood pressure is 134/65, heart rate 77 respiratory rate 16 with an oxygen saturation 97% on room air. Temperature 36.2 General: Well-appearing woman who is in no acute distress. Psychiatric: Appropriate mood and affect. Eyes: No scleral icterus or conjunctival erythema ENMT: Moist mucous membranes. No pharyngeal erythema Cardiovascular: Regular, rate, and rhythm. No gallops, murmurs, or rubs. Bilateral upper extremity pulses symmetric and intact. No peripheral edema. No JVD. Respiratory: Lungs clear to auscultation bilaterally. No wheezes, rales, or rhonchi. Gastrointestinal: Soft, non-tender, non-distended. Normoactive bowel sounds Genitourinary: Suprapubic tenderness to palpation. There is mild left CVA tenderness. Musculoskeletal: Normal range of motion. Skin: No lesions or abrasions. Neurological: Alert, GCS 15 MEDICAL DECISION MAKING AND COURSE IN THE ED WITH INTERPRETATION/REVIEW OF DIAGNOSTIC STUDIES: This is a 34-year-old woman without any past medical history who comes to the emergency department with left flank pain which radiates into the groin with decreased urination and increased urinary urgency. At this time differential includes cystitis, pyelonephritis, nephrolithiasis. This could be just secondary to her menstrual cramps however this appears to be different. The patient's vitals are stable. We will provide the patient with 1 L of normal saline and obtain CBC, BMP, urinalysis, serum hCG. Will obtain a CT abdomen pelvis without contrast. We will provide the patient with Toradol for pain relief. Patient was amenable to this plan. Patient's labs and imaging had not yet returned by the time of signout. The [facility] pending work-up and disposition. DISPOSITION: [facility] was [facility] CONDITION: Fair PROCEDURES: None FINAL IMPRESSION(S)/DIAGNOSES: 1. Acute left flank pain 2. Acute decreased urination Enio Brice M.D. abdomen/pelvic Pain Score (Numeric/FACES): 8 - Related Data Allergies Allergy/AdvReac Type Severity Reaction Status Date / Time Penicillins Allergy Hives Verified 09/09/20 06:05 Clear medical tape Allergy Other Uncoded 09/09/20 06:05 Green grapes Allergy Hives Uncoded 09/09/20 06:05 Home Meds: Home Meds Acetaminophen/HYDROcodone [[place] 325-10 MG] 1 tab PO Q4H PRN #10 tab 09/09/20 [Rx] Past Medical History - Past Health History Medical/Surgical History: Denies Medical/Surgical History HEENT History: Reports: None Cardiovascular History: Reports: None Other Respiratory History: Reports > 10 yr history of smoking, current use 1 pack/day Gastrointestinal History: Reports: Other (See Below) Other Gastrointestinal History: Indigestion, Right Upper Quadrant Pain, gallbladder problems Genitourinary History: Reports: None 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 History: Reports: 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 [employer]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 History: LMP 02/23/15 Musculoskeletal History: Reports: Back Pain, Chronic Other Musculoskeletal History: Some back pain low and upper, Hx; fractured Left Eye socket Neurological History: Reports: None Psychiatric History: Reports: Anxiety Endocrine/Metabolic History: Reports: None Hematologic History: Reports: None Immunologic History: Reports: None Oncologic (Cancer) History: Reports: None Dermatologic History: Reports: None - Infectious Disease History Infectious Disease History: Reports: Chicken Pox - Past Surgical History Head Surgeries/Procedures: Reports: None Other GI Surgeries/Procedures: Diagnostic Laparoscopy Other Female Surgeries/Procedures: ovarian cyct, uterine biopsy for endomitriosis Social & Family History - Family History Family Medical History: No Pertinent Family History - Tobacco Use Tobacco Use Status *Q: Current Every Day Tobacco User Years of Tobacco use: 15 Packs/Tins Daily: 0.5 - Caffeine Use Caffeine Use: Reports: Soda - Recreational Drug Use Recreational Drug Use: Yes Recreational Drug Type: Reports: Marijuana/Hashish Other Recreational Drug Type: Medical Marijuana Recreational Drug Use Frequency: Socially ED ROS GENERAL - Review of Systems Review Of Systems: See Below ED EXAM, GENERAL - Physical Exam Exam: See Below Departure - Departure Disposition: Home, Self-Care 01 Clinical Impression: Ureter colic, Bladder spasm, Ureteral stone with hydronephrosis - Discharge Information Instructions: Abdominal Pain, Adult, [id number], Renal Colic, [id number] [facility] - Forms: ED Department Discharge Additional Instructions: [facility] - Primary Care [address] [place] [address] [facility] [address] [place] [address] The following information is given to patients seen in the emergency department who are being discharged to home. This information is to outline your options for follow-up care. We provide all patients seen in our emergency department with a follow-up referral. The need for follow-up, as well as the timing and circumstances, are variable depending upon the specifics of your emergency department visit. If you don't have a primary care physician on staff, we will provide you with a referral. We always advise you to contact your personal physician following an emergency department visit to inform them of the circumstance of the visit and for follow-up with them and/or the need for any referrals to a consulting specialist. The emergency department will also refer you to a specialist when appropriate. This referral assures that you have the opportunity for follow-up care with a specialist. All of these measure are taken in an effort to provide you with optimal care, which includes your follow-up. Under all circumstances we always encourage you to contact your private physician who remains a resource for coordinating your care. When calling for follow-up care, please make the office aware that this follow-up is from your recent emergency room visit. If for any reason you are refused follow-up, please contact the [facility] Emergency Department at and asked to speak to the emergency department charge nurse. Sepsis Event Note (ED) - Evaluation Sepsis Screening Result: No Definite Risk <Keyvn Macario - Last Filed: 09/09/20 08:43> Course - Vital Signs Text/Narrative:: 07 41 AM patient's discomfort is almost completely gone. When she has felt the urge to urinate she has been unable to void. She has had a CT and is awaiting the reading. I interpret the CT to show a 2.8 mm stone at the left UVJ. There is ureteral distention. I will give Flomax while I await the radiology report. Last Recorded V/S: Last Vital Signs Temp 36.2 C 09/09/20 06:03 Pulse 70 09/09/20 06:36 Resp 16 09/09/20 06:03 BP 123/68 09/09/20 06:36 Pulse Ox 98 09/09/20 06:36 - Orders/Labs/Meds Orders: Active Orders 24 hr Category Date Time Status Sodium Chloride 0.9% [Normal Saline] 1,000 ml Med 09/09/20 06:30 Active IV ASDIRECTED Medication Orders Sodium Chloride (Normal Saline) 1,000 mls @ 999 mls/hr IV ASDIRECTED MÓNICA Last Admin: 09/09/20 06:28 Dose: 999 mls/hr Documented by: JACQUI Labs: Laboratory Tests 09/09/20 09/09/20 09/09/20 Range/Units 06:31 06:31 06:31 WBC 10.85 (4.0-11.0) K/uL RBC 4.78 (4.30-5.90) M/uL Hgb 13.2 (12.0-16.0) g/dL Hct 41.4 (36.0-46.0) % MCV 86.6 (80.0-98.0) fL MCH 27.6 (27.0-32.0) pg MCHC 31.9 (31.0-37.0) g/dL RDW Std Deviation 50.6 (28.0-62.0) fl RDW Coeff of Teresa 16 H (11.0-15.0) % Plt Count 319 (150-400) K/uL MPV 10.40 (7.40-12.00) fL Neut % (Auto) 75.9 (48.0-80.0) % Lymph % (Auto) 16.2 (16.0-40.0) % Stanton % (Auto) 6.4 (0.0-15.0) % Eos % (Auto) 1.3 (0.0-7.0) % Baso % (Auto) 0.2 (0.0-1.5) % Neut # (Auto) 8.2 H (1.4-5.7) K/uL Lymph # (Auto) 1.8 (0.6-2.4) K/uL Stanton # (Auto) 0.7 (0.0-0.8) K/uL Eos # (Auto) 0.1 (0.0-0.7) K/uL Baso # (Auto) 0.0 (0.0-0.1) K/uL Nucleated RBC % 0.0 /100WBC Nucleated RBCs # 0 K/uL Sodium 138 (136-145) mmol/L Potassium 3.6 (3.5-5.1) mmol/L Chloride 104 (98-107) mmol/L Carbon Dioxide 23.7 (21.0-32.0) mmol/L BUN 9 (7.0-18.0) mg/dL Creatinine 0.7 (0.6-1.0) mg/dL Est Cr Clr Drug Dosing 113.16 mL/min Estimated GFR (MDRD) > 60.0 ml/min Glucose 125 H (74-106) mg/dL Calcium 8.9 (8.5-10.1) mg/dL HCG, Qual NEGATIVE (NEG) Urine Color Urine Appearance Urine pH (5.0-8.0) Ur Specific [place] (1.001-1.035) Urine Protein (NEGATIVE) mg/dL Urine Glucose (UA) (NEGATIVE) mg/dL Urine Ketones (NEGATIVE) mg/dL Urine Occult Blood (NEGATIVE) Urine Nitrite (NEGATIVE) Urine Bilirubin (NEGATIVE) Urine Urobilinogen (<2.0) EU/dL Ur Leukocyte Esterase (NEGATIVE) Urine RBC (0-2/HPF) Urine WBC (0-5/HPF) Ur Epithelial Cells (NONE-FEW) Urine Bacteria (NEGATIVE) 09/09/20 Range/Units 08:09 WBC (4.0-11.0) K/uL RBC (4.30-5.90) M/uL Hgb (12.0-16.0) g/dL Hct (36.0-46.0) % MCV (80.0-98.0) fL MCH (27.0-32.0) pg MCHC (31.0-37.0) g/dL RDW Std Deviation (28.0-62.0) fl RDW Coeff of Teresa (11.0-15.0) % Plt Count (150-400) K/uL MPV (7.40-12.00) fL Neut % (Auto) (48.0-80.0) % Lymph % (Auto) (16.0-40.0) % Stanton % (Auto) (0.0-15.0) % Eos % (Auto) (0.0-7.0) % Baso % (Auto) (0.0-1.5) % Neut # (Auto) (1.4-5.7) K/uL Lymph # (Auto) (0.6-2.4) K/uL Stanton # (Auto) (0.0-0.8) K/uL Eos # (Auto) (0.0-0.7) K/uL Baso # (Auto) (0.0-0.1) K/uL Nucleated RBC % /100WBC Nucleated RBCs # K/uL Sodium (136-145) mmol/L Potassium (3.5-5.1) mmol/L Chloride (98-107) mmol/L Carbon Dioxide (21.0-32.0) mmol/L BUN (7.0-18.0) mg/dL Creatinine (0.6-1.0) mg/dL Est Cr Clr Drug Dosing mL/min Estimated GFR (MDRD) ml/min Glucose (74-106) mg/dL Calcium (8.5-10.1) mg/dL HCG, Qual (NEG) Urine Color YELLOW Urine Appearance CLEAR Urine pH 6.0 (5.0-8.0) Ur Specific [place] <= 1.005 (1.001-1.035) Urine Protein NEGATIVE (NEGATIVE) mg/dL Urine Glucose (UA) NEGATIVE (NEGATIVE) mg/dL Urine Ketones NEGATIVE (NEGATIVE) mg/dL Urine Occult Blood LARGE H (NEGATIVE) Urine Nitrite NEGATIVE (NEGATIVE) Urine Bilirubin NEGATIVE (NEGATIVE) Urine Urobilinogen 0.2 (<2.0) EU/dL Ur Leukocyte Esterase NEGATIVE (NEGATIVE) Urine RBC 15-20 (0-2/HPF) Urine WBC 0-2 (0-5/HPF) Ur Epithelial Cells FEW (NONE-FEW) Urine Bacteria FEW (NEGATIVE) Meds: Medications Generic Name Dose Route Start Last Admin Trade Name Freq PRN Reason Stop Dose Admin Sodium Chloride 1,000 mls @ 999 mls/hr 09/09/20 06:30 04/02/21 06:28 Normal Saline IV 999 mls/hr ASDIRECTED MÓNICA Administration Discontinued Medications Generic Name Dose Route Start Last Admin Trade Name Yaneth PRN Reason Stop Dose Admin Ketorolac Tromethamine 15 mg 09/09/20 06:28 09/09/20 06:31 Ketorolac 15 Mg/Ml Sdv IVPUSH 09/09/20 06:29 15 mg ONETIME ONE Administration Tamsulosin HCl 0.4 mg 09/09/20 07:44 09/09/20 08:08 Tamsulosin 0.4 Mg Cap.Er PO 09/09/20 07:45 0.4 mg ONETIME ONE Administration Departure - Departure Time of Disposition: 08:41 Condition: Good Sepsis Event Note (ED) - Focused Exam Vital Signs: Vital Signs Temp Pulse Resp BP Pulse Ox 09/09/20 06:36 70 123/68 98 09/09/20 06:03 36.2 C 77 16 134/65 97
[2020-09-09 07:03] LABS: BLOOD UREA NITROGEN,BUN 9 mg/dL (7.0-18.0); CARBON DIOXIDE,CO2 23.7 mmol/L (21.0-32.0); CHLORIDE,CL 104 mmol/L (98-107); GLUCOSE RANDOM 125 mg/dL (74-106); POTASSIUM,K 3.6 mmol/L (3.5-5.1); SODIUM,NA 138 mmol/L (136-145)
[2020-09-09] MEDS ORDERED: Tamsulosin 0.4 MG Cap.ER PO ONE (07:44)
--- NOTE | 2020-09-09 08:07 | CT ---
INDICATION: Left flank pain and decreased urination, evaluate for nephrolithiasis. TECHNIQUE: CT of the abdomen and pelvis without intravenous contrast. Coronal and sagittal reconstructions. COMPARISON: CT of the abdomen and pelvis 09/11/2019. FINDINGS: The liver is enlarged measuring 24.4 cm in length. This is stable. Contracted gallbladder containing gallstones. There also appear to be stones within the cystic duct similar to prior exam. No evidence of gallbladder inflammation. No biliary dilation. The unenhanced spleen, pancreas, and adrenal glands are normal in appearance. There is a 2 mm mildly obstructing stone just inside the bladder at the left ureterovesicular junction (series 201, image 161). Associated mild left hydronephrosis without significant ureteral dilation. Tiny nonobstructing right renal caliceal stone. No right hydronephrosis or ureteral dilation. The unenhanced bladder is otherwise unremarkable. No bowel dilation. Negative appendix. No intraperitoneal free air or fluid. The unenhanced uterus and ovaries are normal in appearance. No lymphadenopathy. Subcutaneous edema overlying the upper lumbar spine. Degenerative changes of the spine. Stable lucent lesion in the posterior right iliac bone which is most likely benign. Mild atelectasis or scarring in the right middle lobe and lingula. The lung bases are otherwise clear. IMPRESSION: 1. 2 mm mildly obstructing stone just inside the bladder at the left UVJ. Associated mild left hydronephrosis. 2. Stable cholelithiasis and stones within the cystic duct without evidence of gallbladder inflammation. 3. Stable hepatomegaly. 4. Stable lucent lesion in the posterior right iliac bone which is likely benign. Please note that all CT scans at this facility use dose modulation, iterative reconstruction, and/or weight-based dosing when appropriate to reduce radiation dose to as low as reasonably achievable. Dictated by Ayanna Garnett MD @ Sep 09 2020 7:48AM Signed by Dr. Ayanna Garnett @ Sep 09 2020 8:06AM
[2020-09-09 09:02] VITALS: BP 140/82; PULSE 63
== END 2020-09-09 08:48 | disposition home or self-care (01) ==
LOC: MW.ED 05:54
DX: N13.2 Hydronephrosis with renal and ureteral calculous obstruction (principal); N32.89 Other specified disorders of bladder; Z88.0 Allergy status to penicillin; Z91.018 Allergy to other foods; Z72.0 Tobacco use
CPT/HCPCS: 36415; 74176; 80048; 81001; 84703; 85025; 96374; 99284; A9270; J1885; J7030

== ENCOUNTER 2021-04-11 08:35 | Emergency (ER) | payer OTHER ==
--- NOTE | 2021-04-11 09:34 | EDM.PDOC ---
ED HPI GENERAL MEDICAL PROBLEM - General Chief Complaint: ENT Problem Stated Complaint: droopy tingly face Time Seen by Provider: 04/11/21 09:10 - History of Present Illness INITIAL COMMENTS - FREE TEXT/NARRATIVE: Pt is an otherwise well 35-year-old female. Patient does have a history of prior left-sided facial fracture many years ago. A month or 2 ago she was diagnosed with sinusitis and put on azithromycin it did not really seem to do anything but her symptoms eventually faded. For the last 4 days she has had left facial pressure and fullness particularly around the left cheek in the left forehead associated with a left ear pressure as well no tinnitus or vertigo. Patient yesterday had some bilateral neck discomfort but this is receded. She has no headache. No cough or shortness of breath no myalgias or arthralgias no abdominal pain nausea or vomiting or any other symptoms. Patient is a constant without clear exacerbating or alleviating factors. 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 She does report some left facial paresthesias intermittently across the left forehead and the left cheek. - Related Data Allergies Allergy/AdvReac Type Severity Reaction Status Date / Time Penicillins Allergy Hives Verified 04/11/21 08:51 Clear medical tape Allergy Other Uncoded 04/11/21 08:51 Green grapes Allergy Hives Uncoded 04/11/21 08:51 Home Meds: Home Meds Acetaminophen/HYDROcodone [[place] 325-10 MG] 1 tab PO Q4H PRN #10 tab 09/09/20 [Rx] Past Medical History - Past Health History Medical/Surgical History: Denies Medical/Surgical History HEENT History: Reports: None Cardiovascular History: Reports: None Other Respiratory History: Reports > 10 yr history of smoking, current use 1 pack/day Gastrointestinal History: Reports: Other (See Below) Other Gastrointestinal History: Indigestion, Right Upper Quadrant Pain, gallbladder problems Genitourinary History: Reports: None 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 END 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 History: Reports: 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 Other WET END HELPER History: LMP 02/23/15 Musculoskeletal History: Reports: Back Pain, Chronic Other Musculoskeletal History: Some back pain low and upper, Hx; fractured Left Eye socket Neurological History: Reports: None Psychiatric History: Reports: Anxiety Endocrine/Metabolic History: Reports: None Hematologic History: Reports: None Immunologic History: Reports: None Oncologic (Cancer) History: Reports: None Dermatologic History: Reports: None - Infectious Disease History Infectious Disease History: Reports: Chicken Pox - Past Surgical History Head Surgeries/Procedures: Reports: None Other GI Surgeries/Procedures: Diagnostic Laparoscopy Other Female Surgeries/Procedures: ovarian cyct, uterine biopsy for endomitriosis Social & Family History - Family History Family Medical History: No Pertinent Family History - Tobacco Use Tobacco Use Status *Q: Current Every Day Tobacco User Years of Tobacco use: 10 Packs/Tins Daily: 1 - Caffeine Use Caffeine Use: Reports: Soda - Recreational Drug Use Recreational Drug Type: Reports: Marijuana/Hashish Other Recreational Drug Type: medicinal marijuana ED ROS GENERAL - Review of Systems Review Of Systems: See Below Free Text/Narrative/Comment: General: No fever. Skin: No rash. Eyes: No vision problems. ENT: Per HPI Neck: No neck stiffness. Respiratory: No shortness of breath. Cardiac: No chest pain. Gastrointestinal: No nausea, vomiting or abdominal pain. Urinary: No dysuria. Musculoskeletal: No myalgias/arthralgias. Neurologic: Per HPI ED EXAM, GENERAL - Physical Exam Exam: See Below Free Text/Narrative:: General Appearance: No acute distress, appears comfortable Skin: No rash HEENT: Normocephalic/atraumatic, sclera anicteric, mucous membranes moist, extraocular movements intact and painless, pupils PERRLA, left frontal and maxillary sinuses tender to percussion, left TM serous effusion, no trismus uvula midline no posterior oropharyngeal erythema or swelling no submental or sublingual swelling Neck: Normal range of motion, no meningismus Chest and Lungs: Bilateral breath sounds, clear to auscultation Cardiovascular: Regular rate and rhythm Abdomen: Soft, non-tender Musculoskeletal: No edema or tenderness Neurologic: Awake, alert, no obvious deficits, moving all extremities, cranial nerves III through XI intact bilaterally Psychiatric: Appropriate, cooperative Course - Vital Signs Last Recorded V/S: Last Vital Signs Temp 97.6 F 04/11/21 09:40 Pulse 55 L 04/11/21 09:40 Resp 16 04/11/21 09:40 BP 114/67 04/11/21 09:40 Pulse Ox 99 04/11/21 09:40 Departure - Departure Time of Disposition: 09:31 Disposition: Home, Self-Care 01 Condition: Good Clinical Impression: Sinusitis - Discharge Information *PRESCRIPTION DRUG MONITORING PROGRAM REVIEWED*: Not Applicable *COPY OF PRESCRIPTION DRUG MONITORING REPORT IN PATIENT DREA: Not Applicable Instructions: Sinusitis, Adult, [id number] Referrals: Eva Marion MD [Primary Care Provider] - Forms: ED Department Discharge Additional Instructions: Your symptoms are most likely due to a left-sided sinus infection. When symptoms of been going on for less than 2 weeks the vast majority of sinus infections are caused by a virus and not a bacterial infection. I recommend that for the next 4 to 5 days you take 2 200 mg [id number] ibuprofen tablets (for a total of 400 mg) every 8 hours with food. I recommend that you use Mucinex to help thin the mucus in your body. I recommend that you use Afrin 2 sprays in each nostril every 12 hours. Please only use the Afrin for 3 days. 30 minutes after using the Afrin I recommend trying a Mary pot or other sinus rinse device to help clear out your sinuses. If your symptoms continue to worsen if you develop a fever or any other new symptoms that concern you please call your doctor or return to the ER. The following information is given to patients seen in the emergency department who are being discharged to home. This information is to outline your options for follow-up care. We provide all patients seen in our emergency department with a follow-up referral. The need for follow-up, as well as the timing and circumstances, are variable depending upon the specifics of your emergency department visit. If you don't have a primary care physician on staff, we will provide you with a referral. We always advise you to contact your personal physician following an emergency department visit to inform them of the circumstance of the visit and for follow-up with them and/or the need for any referrals to a consulting specialist. The emergency department will also refer you to a specialist when appropriate. This referral assures that you have the opportunity for follow-up care with a specialist. All of these measure are taken in an effort to provide you with optimal care, which includes your follow-up. Under all circumstances we always encourage you to contact your private physician who remains a resource for coordinating your care. When calling for follow-up care, please make the office aware that this follow-up is from your recent emergency room visit. If for any reason you are refused follow-up, please contact the [facility] Emergency Department at and asked to speak to the emergency department charge nurse. Sepsis Event Note (ED) - Evaluation Sepsis Screening Result: No Definite Risk - Focused Exam Vital Signs: Vital Signs Temp Pulse Resp BP BP Pulse Ox 04/11/21 09:40 97.6 F 55 L 16 114/67 99 04/11/21 08:50 97.6 F 61 18 148/88 H 98 04/11/21 08:47 96.6 F L 63 16 127/66 97 - Assessment/Plan Assessment:: 35-year-old female presenting with signs and symptoms most consistent with a sinusitis. Patient has no neurologic deficits that would suggest a Espinal's palsy or malignant sinusitis. Symptoms of been going on for 4 days so no indication for antibiotics at this time. Patient has a serous TM effusion without signs of bacterial otitis media. Though she had some neck pain yesterday morning she has no meningismus and a normal neck range of motion she also has no headache and is nontoxic and afebrile for all these reasons meningitis is felt very unlikely. She has no trismus oropharyngeal exam is normal no findings of deep space infection of the head or neck. No findings of HORTICULTURAL SPECIALTY GROWER FIELD or RPA. Will start with anti-inflammatories and symptomatic treatment for her likely viral sinusitis. These were reviewed with the patient in detail. Return precautions discussed and understood.
[2021-04-11 10:02] VITALS: BP 114/67; PULSE 55
== END 2021-04-11 09:44 | disposition home or self-care (01) ==
LOC: MW.ED 08:35
DX: J32.9 Chronic sinusitis, unspecified (principal); Z88.0 Allergy status to penicillin; Z91.018 Allergy to other foods; Z91.048 Other nonmedicinal substance allergy status; Z72.0 Tobacco use
CPT/HCPCS: 99283

== ENCOUNTER 2021-04-20 02:25 | Emergency (ER) | payer OTHER ==
[2021-04-20] MEDS ORDERED: Ketorolac 15 MG/ML SDV IVPUSH ONE (03:06)
[2021-04-20 03:39] LABS: BLOOD UREA NITROGEN,BUN 8 mg/dL (7.0-18.0); CARBON DIOXIDE,CO2 23.6 mmol/L (21.0-32.0); CHLORIDE,CL 103 mmol/L (98-107); GLUCOSE RANDOM 104 mg/dL (74-106); POTASSIUM,K 3.6 mmol/L (3.5-5.1); SODIUM,NA 138 mmol/L (136-145)
--- NOTE | 2021-04-20 04:13 | PCM.EKG ---
#1 Interpretation EKG Date: 04/20/21 Time: 04:06 Rhythm: NSR Rate (Beats/Min): 90 [place]: Normal P-Wave: Present QRS: Normal ST-T: Normal QT: Normal Comparison: No Change (09/16/19) EKG Interpretation Comments: Sinus Rhythm
[2021-04-20] MEDS ORDERED: Iopamidol 755 MG/ML 500 ML Multipack Bottle IVPUSH STA (04:31)
--- NOTE | 2021-04-20 04:48 | EDM.PDOC ---
ED HPI GENERAL MEDICAL PROBLEM - General Chief Complaint: Neck Problem Stated Complaint: WOKE UP YESTERDAY W/1 SIDE OF NECK UNABLE TO MOVE Time Seen by Provider: 04/20/21 02:54 - History of Present Illness INITIAL COMMENTS - FREE TEXT/NARRATIVE: CHIEF COMPLAINT(S): Neck pain HISTORY OF PRESENT ILLNESS: This is a 35-year-old woman without any significant past medical history who comes to the emergency department with a chief complaint of neck pain. The patient states that for the last 1 to 2 days she has been experiencing right neck pain. She states that she thought she woke up and slept on her neck wrong so she took some muscle relaxers which did not help. She states that since that time she is unable to turn her head at all and now she states that it feels like it is affecting her swallowing where she has some sore throat. She denies any drooling, trismus or stridor. She denies any fever or chills. She states that her voice is changed. She describes the pain as 10 out of 10 and sharp. There is no radiation of this pain. There is no exacerbating factors of this pain. She has not tried any pain medication other than the muscle relaxer therefore there are no relieving factors. She denies an y headache, blurry vision, loss of vision, diplopia. She denies any trouble walking speaking or swallowing. She denies any runny nose, congestion or cough. REVIEW OF SYSTEMS: Constitutional: Denies fever, chills. Eyes: Denies eye pain Ears, Nose, Mouth, & Throat: Positive for sore throat, trouble swallowing. Denies earache, trismus, drooling, stridor cardiovascular: Denies chest pain Respiratory: Denies shortness of breath Gastrointestinal: Denies Nausea, vomiting, diarrhea, hematochezia. Genitourinary: Denies hematuria Skin:Denies a rash MSK: Positive for neck pain Neurological: Denies blurred vision, numbness, tingling, weakness Psychiatric: Denies depression PAST MEDICAL HISTORY: As per history of present illness and as reviewed below otherwise noncontributory. SURGICAL HISTORY: As per history of present illness and as reviewed below otherwise noncontributory. SOCIAL HISTORY: As per history of present illness and as reviewed below otherwise noncontributory. FAMILY HISTORY: As per history of present illness and as reviewed below otherwise noncontributory. EXAMINATION OF ORGAN SYSTEMS/BODY AREAS: Constitutional: Blood pressure is 113/68, heart rate 66, respiratory rate 18 with an oxygen saturation 97% on room air. Temperature 36.1 General: Young woman who does not appear to be in acute distress sitting up comfortably Psychiatric: Appropriate mood and affect. Eyes: No scleral icterus or conjunctival erythema ENMT: Moist mucous membranes. No pharyngeal erythema uvula is midline. No stridor, drooling, trismus. There is no posterior regular swelling. No ash bmandibular swelling. There is tenderness to palpation along the bilateral sides of the neck worse on the right than the left. Cardiovascular: Regular, rate, and rhythm. No gallops, murmurs, or rubs. Bilateral upper extremity pulses symmetric and intact. No peripheral edema. No JVD. Respiratory: Lungs clear to auscultation bilaterally. No wheezes, rales, or rhonchi. Gastrointestinal: Soft, non-tender, non-distended. Normoactive bowel sounds Genitourinary: No suprapubic tenderness Musculoskeletal: Decreased range of motion of the neck secondary to pain. Skin: No lesions or abrasions. Neurological: Alert, GCS 15 no meningeal signs. Strength and sensation grossly intact in upper and lower extremities bilaterally MEDICAL DECISION MAKING AND COURSE IN THE ED WITH INTERPRETATION/REVIEW OF DIAGNOSTIC STUDIES: This is a 35-year-old woman without any significant past medical history who comes to the emergency department with 2 days of neck pain associate with sore throat, voice changes and trouble swallowing who overall appears nontoxic but does have evidence of bilateral neck pain with limited range of motion. The patient overall appears well, nontoxic and is afebrile with normal vital signs. We will provide the patient with Toradol for pain relief. Will obtain labs including CBC, BMP, and Covid swab. Will obtain a soft tissue neck CT for further evaluation DDx: Musculoskeletal neck strain, retropharyngeal abscess, peritonsillar abscess Laboratory: CBC is unremarkable. BMP unremarkable. Covid is negative. The radiological images were viewed by myself along with reading the report from the radiologist. Soft tissue neck CT does not reveal any acute abnormality. No sign of retropharyngeal or tonsillar abscess After labs and imaging I did discuss the results with the patient. At this time the patient is to treat her pain at home symptomatically. She was given strict return precautions. The patient was amenable to discharge and had no further questions DISPOSITION: The patient was discharged home in stable condition. The patient will follow up with primary care physician in 3 to 5 days CONDITION: Fair PROCEDURES: None FINAL IMPRESSION(S)/DIAGNOSES: 1. Acute pharyngitis 2. Acute neck pain Enio Brice M.D. neck pain Pain Score (Numeric/FACES): 9 - Related Data Allergies Allergy/AdvReac Type Severity Reaction Status Date / Time Penicillins Allergy Hives Verified 04/20/21 02:50 Clear medical tape Allergy Other Uncoded 04/20/21 02:50 Green grapes Allergy Hives Uncoded 04/20/21 02:50 Home Meds: Home Meds Acetaminophen/HYDROcodone [[place] 325-10 MG] 1 tab PO Q4H PRN #10 tab 09/09/20 [Rx] Acetaminophen [Tylenol Extra Strength] 1,000 mg PO Q6HR #56 tablet 04/20/21 [Rx] Ibuprofen 400 mg PO Q6HR #28 tablet 04/20/21 [Rx] methocarbamoL [Methocarbamol] 1,500 mg PO TID #42 tablet 04/20/21 [Rx] Past Medical History - Past Health History Medical/Surgical History: Denies Medical/Surgical History HEENT History: Reports: None Cardiovascular History: Reports: None Respiratory History: Reports: None Other Respiratory History: Reports > 10 yr history of smoking, current use 1 pack/day Gastrointestinal History: Reports: None Other Gastrointestinal History: Indigestion, Right Upper Quadrant Pain, gallbladder problems Genitourinary History: Reports: None 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: Reports: 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 Other 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: LMP 02/23/15 Musculoskeletal History: Reports: Back Pain, Chronic Other Musculoskeletal History: Some back pain low and upper, Hx; fractured Left Eye socket Neurological History: Reports: None Psychiatric History: Reports: Anxiety Endocrine/Metabolic History: Reports: None Insulin Pump Model and Carrier Operator: N/A Hematologic History: Reports: None Immunologic History: Reports: None Oncologic (Cancer) History: Reports: None Dermatologic History: Reports: None - Infectious Disease History Infectious Disease History: Reports: Chicken Pox - Past Surgical History Head Surgeries/Procedures: Reports: None Other GI Surgeries/Procedures: Diagnostic Laparoscopy Other Female Surgeries/Procedures: ovarian cyct, uterine biopsy for endomitriosis Social & Family History - Family History Family Medical History: No Pertinent Family History - Caffeine Use Caffeine Use: Reports: Soda - Recreational Drug Use Recreational Drug Use: No ED ROS GENERAL - Review of Systems Review Of Systems: See Below ED EXAM, GENERAL - Physical Exam Exam: See Below Course - Vital Signs Last Recorded V/S: Last Vital Signs Temp 36.1 C 04/20/21 02:40 Pulse 63 04/20/21 05:38 Resp 18 04/20/21 05:38 BP 105/65 04/20/21 05:38 Pulse Ox 97 04/20/21 05:38 - Orders/Labs/Meds Labs: Laboratory Tests 04/20/21 04/20/21 04/20/21 Range/Units 03:18 03:18 03:21 WBC 9.83 (4.0-11.0) K/uL RBC 4.52 (4.30-5.90) M/uL Hgb 13.0 (12.0-16.0) g/dL Hct 39.3 (36.0-46.0) % MCV 86.9 (80.0-98.0) fL MCH 28.8 (27.0-32.0) pg MCHC 33.1 (31.0-37.0) g/dL RDW Std Deviation 48.2 (28.0-62.0) fl RDW Coeff of Teresa 15 (11.0-15.0) % Plt Count 304 (150-400) K/uL MPV 10.50 (7.40-12.00) fL Neut % (Auto) 65.6 (48.0-80.0) % Lymph % (Auto) 24.7 (16.0-40.0) % Armstrong % (Auto) 8.0 (0.0-15.0) % Eos % (Auto) 1.5 (0.0-7.0) % Baso % (Auto) 0.2 (0.0-1.5) % Neut # (Auto) 6.4 H (1.4-5.7) K/uL Lymph # (Auto) 2.4 (0.6-2.4) K/uL Armstrong # (Auto) 0.8 (0.0-0.8) K/uL Eos # (Auto) 0.2 (0.0-0.7) K/uL Baso # (Auto) 0.0 (0.0-0.1) K/uL Nucleated RBC % 0.0 /100WBC Nucleated RBCs # 0 K/uL Sodium 138 (136-145) mmol/L Potassium 3.6 (3.5-5.1) mmol/L Chloride 103 (98-107) mmol/L Carbon Dioxide 23.6 (21.0-32.0) mmol/L BUN 8 (7.0-18.0) mg/dL Creatinine 0.5 L (0.6-1.0) mg/dL Est Cr Clr Drug Dosing 156.91 mL/min Estimated GFR (MDRD) > 60.0 ml/min Glucose 104 (74-106) mg/dL Calcium 8.5 (8.5-10.1) mg/dL SARS-CoV-2 RNA (CHEMA) NEGATIVE (NEGATIVE) Meds: Medications Discontinued Medications Generic Name Dose Route Start Last Admin Trade Name Freq PRN Reason Stop Dose Admin Cyclobenzaprine HCl 10 mg 04/20/21 05:04 04/20/21 05:34 Cyclobenzaprine 10 Mg Tab PO 04/20/21 05:05 10 mg ONETIME ONE Administration Iopamidol 75 ml 04/20/21 04:31 04/20/21 04:32 Iopamidol 755 Mg/Ml 500 Ml Multipack Bottle IVPUSH 04/20/21 04:32 75 ml ONETIME STA Administration Ketorolac Tromethamine 15 mg 04/20/21 03:06 04/20/21 03:17 Ketorolac 15 Mg/Ml Sdv IVPUSH 04/20/21 03:07 15 mg ONETIME ONE Administration Departure - Departure Time of Disposition: 05:09 Disposition: Home, Self-Care 01 Condition: Fair Clinical Impression: Strain of neck - Discharge Information *PRESCRIPTION DRUG MONITORING PROGRAM REVIEWED*: No *COPY OF PRESCRIPTION DRUG MONITORING REPORT IN PATIENT DREA: No Prescriptions: Ibuprofen 400 mg PO Q6HR #28 tablet methocarbamoL [Methocarbamol] 1,500 mg PO TID #42 tablet Acetaminophen [Tylenol Extra Strength] 1,000 mg PO Q6HR #56 tablet Instructions: Cervical Sprain, [id number] Referrals: [facility] [Primary Care Provider] - Forms: ED Department Discharge Additional Instructions: You were evaluated today on an emergent basis. At this time there was no evidence of any abscess or abnormality on your neck exam. At this time I do believe your pain is secondary to muscle spasm versus neck strain. I recommend you use Tylenol and Motrin as described below. You may use Robaxin 3 times a day as prescribed. Please stretch the area and use a heating pad to the affected area 20 minutes 4 times a day. Please follow-up with your primary care physician within 3 to 5 days [facility] [address] [place] [address] [id number] [address] The patient is informed of any results of their evaluation and diagnostic workup and all questions are answered. They are given discharge instructions and return precautions. The patient is stable for discharge. The patient states they understand and agree with the plan and that they will return if their symptoms get worse or if they have any new concerns. The following information is given to patients seen in the emergency department who are being discharged to home. This information is to outline your options for follow-up care. We provide all patients seen in our emergency department with a follow-up referral. The need for follow-up, as well as the timing and circumstances, are variable depending upon the specifics of your emergency department visit. If you don't have a primary care physician on staff, we will provide you with a referral. We always advise you to contact your personal physician following an emergency department visit to inform them of the circumstance of the visit and for follow-up with them and/or the need for any referrals to a consulting specialist. The emergency department will also refer you to a specialist when appropriate. This referral assures that you have the opportunity for follow-up care with a specialist. All of these measure are taken in an effort to provide you with optimal care, which includes your follow-up. Under all circumstances we always encourage you to contact your private physician who remains a resource for coordinating your care. When calling for follow-up care, please make the office aware that this follow-up is from your recent emergency room visit. If for any reason you are refused follow-up, please contact the [facility] Emergency Department at and asked to speak to the emergency department charge nurse. Sepsis Event Note (ED) - Evaluation Sepsis Screening Result: No Definite Risk
--- NOTE | 2021-04-20 05:03 | CT ---
INDICATION: Neck pain and sore throat. Evaluate for retropharyngeal abscess. COMPARISON: None available TECHNIQUE: CT examination of the neck is performed using spiral technique during the uneventful intravenous administration of 75 cc of Isovue 370. 2.5 mm thick axial sections were made along with coronal and sagittal sections. Please note that all CT scans at this facility use dose modulation, iterative reconstruction, and/or weight-based dosing when appropriate to reduce radiation dose to as low as reasonably achievable. FINDINGS: The airway structures are normal in appearance. There is no sign retropharyngeal abscess. There is no sign tonsillar abscess. There is no sign of cervical mass or adenopathy on today`s study. The salivary glands are normal in appearance. The visualized posterior fossa, mastoids, skull base, and orbits are normal in appearance. The paranasal sinuses are clear. The great vessels are unremarkable. The thyroid gland is normal in appearance. The visualized upper chest is clear. The visualized upper mediastinum is normal in appearance. The osseous structures are unremarkable. IMPRESSION: Normal CT examination of the neck with contrast. No sign of any retropharyngeal or tonsillar abscess. Please note that all CT scans at this facility use dose modulation, iterative reconstruction, and/or weight-based dosing when appropriate to reduce radiation dose to as low as reasonably achievable. Dictated by Aydin Esquivel MD @ 04/20/2021 5:02:21 AM (Electronically Signed)
[2021-04-20] MEDS ORDERED: Cyclobenzaprine 10 MG Tab PO ONE (05:04)
[2021-04-20 05:38] VITALS: BP 105/65; PULSE 63
== END 2021-04-20 05:38 | disposition home or self-care (01) ==
LOC: MW.ED 02:25
DX: S16.1XXA Strain of muscle, fascia and tendon at neck level, initial encounter (principal); J02.9 Acute pharyngitis, unspecified; Z88.0 Allergy status to penicillin; Z91.018 Allergy to other foods; Z91.048 Other nonmedicinal substance allergy status; Z20.822 Contact with and (suspected) exposure to COVID-19; X50.1XXA Overexertion from prolonged static or awkward postures, initial encounter; Y93.84 Activity, sleeping
CPT/HCPCS: 36415; 70491; 80048; 85025; 87635; 96374; 99283; A9270; J1885; Q9967; U0002

== ENCOUNTER 2022-02-14 16:21 | Emergency (ER) | payer OTHER | END 2022-02-14 17:25 | disposition left against medical advice (07) | LOC: MW.ED 16:21 | DX: Z53.21 Procedure and treatment not carried out due to patient leaving prior to being seen by health care provider (principal) ==

== ENCOUNTER 2022-04-03 13:00 | Emergency (ER) | payer OTHER ==
[2022-04-03 13:20] VITALS: BP 139/62; PULSE 67
[2022-04-03] MEDS ORDERED: Ondansetron 4 MG/2 ML SDV IVPUSH ONE (13:23)
[2022-04-03] MEDS ORDERED: Ketorolac 30 MG/ML SDV IVPUSH ONE (13:23)
[2022-04-03] MEDS ORDERED: Sodium Chloride 0.9% 1,000 ML IV ONE (13:23)
[2022-04-03 14:21] LABS: CARBON DIOXIDE,CO2 23.6 mmol/L (21.0-32.0); POTASSIUM,K 3.9 mmol/L (3.5-5.1)
== END 2022-04-03 16:27 | disposition left against medical advice (07) ==
LOC: MW.ED 13:00
DX: R10.32 Left lower quadrant pain (principal); Z88.0 Allergy status to penicillin; Z91.048 Other nonmedicinal substance allergy status; Z91.018 Allergy to other foods
CPT/HCPCS: 36415; 76856; 80053; 81001; 81025; 83690; 85025; 96361; 96374; 96375; 99284; J1885; J2405; J7030

== ENCOUNTER 2022-07-10 13:33 | Emergency (ER) | payer OTHER ==
[2022-07-10] MEDS ORDERED: Aspirin 81 MG Tab.Chew PO ONE (13:58)
[2022-07-10] MEDS ORDERED: Sodium Chloride 0.9% 2.5 ML Syringe FLUSH PRN (13:58)
[2022-07-10] MEDS ORDERED: Sodium Chloride 0.9% 10 ML Syringe FLUSH PRN (13:58)
[2022-07-10 14:51] LABS: CARBON DIOXIDE,CO2 24.7 mmol/L (21.0-32.0); POTASSIUM,K 3.7 mmol/L (3.5-5.1)
[2022-07-10 17:26] VITALS: BP 122/65; PULSE 76
== END 2022-07-10 17:24 | disposition home or self-care (01) ==
LOC: MW.ED 13:33
DX: R07.89 Other chest pain (principal); Z88.0 Allergy status to penicillin; Z91.018 Allergy to other foods; Z91.048 Other nonmedicinal substance allergy status; Z72.0 Tobacco use
CPT/HCPCS: 36415; 71045; 80053; 84484; 84702; 85025; 99285; A9270; J3490

== ENCOUNTER 2023-02-17 14:21 | Emergency (ER) | payer OTHER ==
[2023-02-17 14:45] LABS: APPEARANCE,URINE SLT CLOUDY; BILIRUBIN,URINE NEGATIVE (NEGATIVE); COLOR,URINE YELLOW; GLUCOSE,URINE NEGATIVE (NEGATIVE); KETONES,URINE NEGATIVE (NEGATIVE); LEUKOCYTE ESTERASE,URINE MODERATE (NEGATIVE); NITRITE,URINE NEGATIVE (NEGATIVE); OCCULT BLOOD,URINE MODERATE (NEGATIVE); PH,URINE 5.5 (5.0-8.0); PROTEIN,URINE NEGATIVE (NEGATIVE); UROBILINOGEN,URINE 0.2 EU/dL (<2.0)
[2023-02-17 14:59] LABS: BACTERIA,URINE 2+ (NEGATIVE); EPITHELIAL CELLS,URINE MODERATE (NONE-FEW); YEAST,URINE MODERATE
[2023-02-17 15:04] VITALS: BP 136/78
[2023-02-17 15:29] VITALS: PULSE 69
== END 2023-02-17 15:28 | disposition home or self-care (01) ==
LOC: MW.ED 14:21
DX: N30.01 Acute cystitis with hematuria (principal); Z88.0 Allergy status to penicillin; Z91.018 Allergy to other foods; Z91.048 Other nonmedicinal substance allergy status
CPT/HCPCS: 81001; 81025; 87086; 99283

== ENCOUNTER 2024-03-30 11:05 | Emergency (ER) | payer OTHER ==
[2024-03-30] MEDS: Lidocaine 2% Viscous Solution 15 ML UD PO ONE (11:25)
[2024-03-30] MEDS: Benzocaine 20% Topical Spray UD MUCMEM ONE (11:26)
[2024-03-30] MEDS: Acetaminophen/HYDROcodone 325-5 MG Tab PO ONE (11:26)
[2024-03-30 11:50] VITALS: BP 129/78; PULSE 72
== END 2024-03-30 11:46 | disposition home or self-care (01) ==
LOC: MW.ED 11:05
DX: K04.7 Periapical abscess without sinus (principal); Z88.0 Allergy status to penicillin; Z91.018 Allergy to other foods; Z91.048 Other nonmedicinal substance allergy status; Z79.899 Other long term (current) drug therapy; Z75.8 Other problems related to medical facilities and other health care
CPT/HCPCS: 99282; A9270

== ENCOUNTER 2024-05-28 16:44 | Emergency (ER) | payer OTHER ==
[2024-05-28 17:29] LABS: BASOPHILS ABSOLUTE AUTO 0.04 K/uL (0.00-0.20); BASOPHILS PERCENT AUTO 0.4 % (0.0-1.0); EOSINOPHILS ABSOLUTE AUTO 0.27 K/uL (0.00-0.45); EOSINOPHILS PERCENT AUTO 2.4 % (0.0-6.0); HEMATOCRIT 39.3 % (37.0-47.0); HEMOGLOBIN 12.9 g/dL (12.0-16.0); IMMATURE GRAN ABSOLUTE AUTO 0.04 K/uL (0.00-0.05); IMMATURE GRAN PERCENT AUTO 0.4 % (0.0-0.4); LYMPHOCYTES ABSOLUTE AUTO 3.54 K/uL (1.00-4.80); LYMPHOCYTES PERCENT AUTO 31.4 % (24.0-44.0); MEAN CORPUSCULAR HEMOGLOBIN 26.8 pg (28.0-32.0); MEAN CORPUSCULAR HGB CONC 32.8 g/dL (32.0-36.0); MEAN CORPUSCULAR VOLUME 81.5 fL (83.0-99.0); MEAN PLATELET VOLUME 9.7 fL (9.4-12.3); MONOCYTES ABSOLUTE AUTO 0.86 K/uL (0.00-0.80); MONOCYTES PERCENT AUTO 7.6 % (0.0-8.0); NEUTROPHILS ABSOLUTE AUTO 6.53 K/uL (1.80-7.70); NEUTROPHILS PERCENT AUTO 57.8 % (41.0-71.0); PLATELET COUNT,PLT 330 K/uL (150-400); RED BLOOD CELL COUNT 4.82 M/uL (4.10-5.30); WHITE BLOOD CELL COUNT,WBC 11.28 K/uL (3.9-11.3)
[2024-05-28] MEDS: Morphine 4 MG/ML Syringe IVPUSH STA ×2 (17:36→19:31)
[2024-05-28] MEDS: Ondansetron 4 MG/2 ML SDV IVPUSH STA (17:36)
[2024-05-28] MEDS: Iopamidol 755 MG/ML 500 ML Multipack Bottle IVPUSH STA (18:04)
[2024-05-28 18:27] LABS: ALBUMIN 3.3 g/dL (3.4-5.0); BILIRUBIN TOTAL 0.3 mg/dL (0.2-1.0); CARBON DIOXIDE,CO2 25.1 mmol/L (21.0-32.0); CREATININE 0.6 mg/dL (0.6-1.0); EST CRCL DRUG DOSING (CG) 131.56 mL/min; POTASSIUM,K 3.6 mmol/L (3.5-5.1); PROTEIN TOTAL,TP 7.2 g/dL (6.4-8.2)
[2024-05-28 18:28] LABS: A/G RATIO 0.9 (0.9-1.6)
[2024-05-28 21:02] VITALS: BP 148/89; PULSE 65
== END 2024-05-28 21:00 | disposition home or self-care (01) ==
LOC: MW.ED 16:44
DX: K80.70 Calculus of gallbladder and bile duct without cholecystitis without obstruction (principal); K76.0 Fatty (change of) liver, not elsewhere classified; Z88.0 Allergy status to penicillin; Z91.018 Allergy to other foods; Z91.048 Other nonmedicinal substance allergy status; Z79.899 Other long term (current) drug therapy; Z75.8 Other problems related to medical facilities and other health care
CPT/HCPCS: 36415; 74177; 76705; 80053; 83690; 84703; 85025; 96374; 96375; 96376; 99284; J2270; J2405; Q9967; 99283

== ENCOUNTER 2024-08-18 07:46 | Day surgery (SDC) | payer OTHER ==
[~2024-08-18 07:46] MED LIST: Albuterol 0.083% 2.5 MG/3 ML Neb Soln NEB PRN; Bupivacaine 0.5% 30 ML SDV ONE; Clindamycin Phosphate in D5W 900 MG in Premix Bag 1 BAG IV ONE; Lactated Ringers 1,000 ML IV SCH; Metoclopramide 10 MG/2 ML SDV IVPUSH PRN; Morphine 2 MG/ML SYRINGE IVPUSH PRN; Naloxone 0.4 MG/ML SDV IVPUSH PRN; Ondansetron 4 MG/2 ML SDV IVPUSH PRN; Phenylephrine HCl In 0.9% NaCl 1 MG/10 ML Syringe IVPUSH PRN; Sodium Chloride 0.9% 10 ML Syringe FLUSH PRN; Sodium Chloride 0.9% 2.5 ML Syringe FLUSH PRN; Sodium Chloride 0.9% 20 ML SDV IV PRN; fentaNYL 50 MCG/ML SDV IVPUSH PRN
[2024-08-18] MEDS: Lactated Ringers 1,000 ML IV SCH (08:15)
[2024-08-18] MEDS: Scopalamine 1mg/3day Transdermal Patch TRDERM PRN (08:16)
[2024-08-18] MEDS: Clindamycin Phosphate in D5W 900 MG in Premix Bag 1 BAG IV ONE (08:22)
[2024-08-18] MEDS ORDERED: propofoL 500 MG/50 ML 50 ML ONE (08:45)
[2024-08-18] MEDS ORDERED: propofoL 1,000 MG/100 ML 100 ML ONE (08:48)
[2024-08-18] MEDS ORDERED: Bupivacaine 0.25% 30 ML SDV ONE (08:48)
[2024-08-18] MEDS ORDERED: Ropivacaine 0.5% 5 MG/ML 30 ML SDV ONE (08:48)
[2024-08-18] MEDS ORDERED: Rocuronium Bromide 50 MG/5 ML Syringe ONE (08:58)
[2024-08-18] MEDS ORDERED: dexmedeTOMIDine HCl 200 MCG/2 ML SDV ONE (08:58)
[2024-08-18] MEDS ORDERED: fentaNYL 100 MCG/2 ML SDV ONE (08:58)
[2024-08-18] MEDS ORDERED: Ketamine HCL/NACL, ISO-OSM 50 MG/5 ML Syringe ONE (09:33)
[2024-08-18] MEDS ORDERED: Ondansetron 4 MG/2 ML SDV ONE (09:39)
[2024-08-18] MEDS ORDERED: Dexamethasone 4 MG/ML 5 ML MDV ONE (09:39)
[2024-08-18] MEDS ORDERED: Sugammadex Sodium 200 MG/2 ML VIAL IV ONE (10:30)
[2024-08-18] MEDS ORDERED: Ketorolac 30 MG/ML SDV ONE (10:30)
[2024-08-18] MEDS ORDERED: Propofol 200 MG/20 ML SDV ONE (10:46)
[2024-08-18] MEDS: HYDROmorphone 1 MG/ML Syringe IVPUSH PRN (11:48)
[2024-08-18] MEDS: Cyclobenzaprine 10 MG Tab PO ONE (14:02)
[2024-08-18 14:51] VITALS: BP 99/64; PULSE 54
== END 2024-08-18 14:25 | disposition home or self-care (01) ==
LOC: MW.SDS 07:46
PROVIDERS: ATTEND Surgery
DX: K80.12 Calculus of gallbladder with acute and chronic cholecystitis without obstruction (principal); K66.0 Peritoneal adhesions (postprocedural) (postinfection); K85.10 Biliary acute pancreatitis without necrosis or infection; E66.9 Obesity, unspecified; F17.200 Nicotine dependence, unspecified, uncomplicated; Z88.0 Allergy status to penicillin; Z68.41 Body mass index [BMI] 40.0-44.9, adult
CPT/HCPCS: 47562; 81025; A9270; J0131; J0665; J0736; J1100; J1171; J1885; J2405; J2704; J2795; J3010; J7120; 00790; 64488; J3490

== ENCOUNTER 2024-08-23 15:51 | Emergency (ER) | payer OTHER ==
[2024-08-23 16:28] VITALS: BP 150/90
[2024-08-23 16:41] LABS: APPEARANCE,URINE SLT CLOUDY; BILIRUBIN,URINE NEGATIVE (NEGATIVE); COLOR,URINE YELLOW; GLUCOSE,URINE NEGATIVE (NEGATIVE); KETONES,URINE NEGATIVE (NEGATIVE); LEUKOCYTE ESTERASE,URINE NEGATIVE (NEGATIVE); NITRITE,URINE NEGATIVE (NEGATIVE); OCCULT BLOOD,URINE LARGE (NEGATIVE); PROTEIN,URINE NEGATIVE (NEGATIVE); UROBILINOGEN,URINE 0.2 EU/dL (<2.0)
[2024-08-23 16:51] LABS: BACTERIA,URINE NOT SEEN (NEGATIVE); EPITHELIAL CELLS,URINE MANY (NONE-FEW); WBC,URINE 0-1 (0-5/HPF)
[2024-08-23 18:52] VITALS: PULSE 76
== END 2024-08-23 18:52 | disposition home or self-care (01) ==
LOC: MW.ED 15:51
DX: M79.605 Pain in left leg (principal); E66.9 Obesity, unspecified; Z79.899 Other long term (current) drug therapy; Z88.0 Allergy status to penicillin; Z91.048 Other nonmedicinal substance allergy status; Z91.018 Allergy to other foods; Z68.41 Body mass index [BMI] 40.0-44.9, adult
CPT/HCPCS: 71045; 71045-26; 81001; 81025; 87428-QW; 93971-26-LT; 93971-LT; 99283; 99284

== ENCOUNTER 2025-02-09 13:39 | Emergency (ER) | payer OTHER ==
[2025-02-09 14:09] VITALS: BP 143/76; PULSE 74
== END 2025-02-09 14:55 | disposition left against medical advice (07) ==
LOC: MW.ED 13:39
DX: Z53.21 Procedure and treatment not carried out due to patient leaving prior to being seen by health care provider (principal)

== ENCOUNTER 2025-02-10 11:05 | Day surgery (SDC) | payer OTHER ==
[2025-02-10] MEDS ORDERED: Albuterol 0.083% 2.5 MG/3 ML Neb Soln NEB PRN (11:48)
[2025-02-10] MEDS ORDERED: fentaNYL 50 MCG/ML SDV IVPUSH PRN (11:48)
[2025-02-10] MEDS ORDERED: Naloxone 0.4 MG/ML SDV IVPUSH PRN (11:48)
[2025-02-10] MEDS ORDERED: Ondansetron 4 MG/2 ML SDV IVPUSH PRN (11:48)
[2025-02-10] MEDS ORDERED: propofoL 500 MG/50 ML 50 ML ONE (12:01)
[2025-02-10] MEDS ORDERED: fentaNYL 250 MCG/5 ML SDV ONE (12:01)
[2025-02-10] MEDS ORDERED: Propofol 200 MG/20 ML SDV ONE (12:01)
[2025-02-10] MEDS ORDERED: Lidocaine 2% 11 ML Jelly Filled Syringe ONE (12:03)
[2025-02-10] MEDS ORDERED: ceFAZolin 3 GM Vial ONE (12:14)
[2025-02-10] MEDS ORDERED: Ondansetron 4 MG/2 ML SDV ONE (12:28)
[2025-02-10] MEDS ORDERED: Ketorolac 30 MG/ML SDV ONE (12:28)
[2025-02-10] MEDS: Lactated Ringers 1,000 ML IV SCH (12:52)
[2025-02-10] MEDS: Acetaminophen/oxyCODONE 325-5 MG Tab PO ONE (13:33)
[2025-02-10 13:50] VITALS: BP 152/72; PULSE 52
== END 2025-02-10 13:40 | disposition home or self-care (01) ==
LOC: MW.SDS 11:05
PROVIDERS: ATTEND Surgery
DX: N61.1 Abscess of the breast and nipple (principal); L73.8 Other specified follicular disorders; E66.9 Obesity, unspecified; F17.200 Nicotine dependence, unspecified, uncomplicated; Z88.0 Allergy status to penicillin; Z68.41 Body mass index [BMI] 40.0-44.9, adult; Z79.899 Other long term (current) drug therapy
CPT/HCPCS: 19020; 19120; 81025; 87070; 87075; 87205; A9270; J0665; J0690; J1885; J2003; J2405; J2704; J3010; J7120; 00400